=== PATIENT | male | born 1965 | race Caucasian/White ===

== ENCOUNTER 2017-05-29 05:47 | Inpatient (IN) | payer MEDICARE ==
[~2017-05-29] VITALS: Ht 177.8 cm; Wt 90.4 kg
[~2017-05-29 05:47] MED LIST: ASPIRIN325 MG PO; CLARITIN 10 MG10 MG PO; COREG6.25 MG PO; GEMFIBROZIL600 MG PO; GLIPIZIDE10 MG PO; GLUCOPHAGE1000 MG PO; HYDROCODON-ACE1 EAC7 PO; IMDUR30 MG PO; INDERAL LA80 MG PO; NEURONTIN600 MG PO; NORVASC5 MG PO; PLAVIX75 MG PO; PRAVACHOL40 MG PO; ZESTRIL40 MG PO
[2017-05-29 06:16] LABS: BASOPHILS 0.3 % (0-2); EOSINOPHILS 0.6 % (0-7); HEMATOCRIT 35.4 % (42.0-54.0); HEMOGLOBIN 12.5 g/dL (13.5-17.5); IMMATURE GRANULOCYTES 0.3 % (0-5); LYMPHOCYTES 16.3 % (15-50); MCH 30.5 pg (26.0-34.0); MCHC 35.3 g/dL (31.0-37.0); MCV 86.3 fL (80.0-100.0); MEAN PLATELET VOLUME 10.3 fL (7.4-10.4); MONOCYTES 10.5 % (2-11); PLATELET COUNT 318 10x3/uL (130-400); WBC 11.4 10x3/uL (4.8-10.8)
[2017-05-29 06:50] LABS: ALBUMIN 3.6 g/dL (3.4-5.0); ANION GAP 18.9 mmol/L (8-16); BILIRUBIN - TOTAL 1.23 mg/dL (0.2-1.3); CALCIUM 9.2 mg/dL (8.5-10.1); CARBON DIOXIDE 25.4 mmol/L (21.0-32.0); CREATININE - SERUM 1.5 mg/dL (0.6-1.3); MAGNESIUM - SERUM 1.5 mg/dL (1.8-2.4); POTASSIUM - SERUM 3.3 mmol/L (3.5-5.1); PROTEIN - SERUM 8.7 g/dL (6.4-8.2)
--- NOTE | 2017-05-29 08:32 | NUR ---
PT TO UNIT VIA WHEELCHAIR ACCOMAPNIED BY ER STAFF AND FAMILY MEMBER. LOPEZ RUSSO OBTAINED ADMISSION VITALS. THIS NURSE WILL ADMIT PT PER PROTOCOL.
[2017-05-29] MEDS ORDERED: FOLIC ACID1 MG PO (10:12)
[2017-05-29] MEDS ORDERED: TREXALL7.5 MG PO (10:16)
[2017-05-29] MEDS ORDERED: FISH OIL 1,0001 CA1 (10:16)
[2017-05-29] MEDS ORDERED: HYDROCODONE-APA1 TAB PO (10:18)
[2017-05-29 10:20] VITALS: BP 125/97
[2017-05-29] MEDS ORDERED: CLARITIN 10 MG10 MG PO (10:20)
--- NOTE | 2017-05-29 10:36 | NUR ---
QUCKSTART DONE, ADMISSION ASSESMENT DONE, AND ADMISSION HISTORY DONE. IV FLUIDS HUNG. PT REFUSES SCDS. WILL CONTINUE TO MONITOR AND CONTINUE WITH PLAN OF CARE.
[2017-05-29 11:37] VITALS: BP 123/71
[2017-05-29 15:48] VITALS: BP 106/51
--- NOTE | 2017-05-29 16:35 | NUR ---
PT IS CURRENTLY LAYING IN BED ON BACK. PT TX WITH INSULIN PER SLIDING SCALE. PT GIVEN NORCO REQUESTED FOR 01/17 BACK PAIN. PT DENIES ANY FURTHER NEED AT THIS TIME. WILL CONTINUE TO MONITOR.
--- NOTE | 2017-05-29 17:45 | NUR ---
PT IS LAYING IN BED WITH EYES OPEN RESTING. PT DENIES ANY NEED AT THIS TIME. WILL CONTINUE TO MONITOR.
[2017-05-29 20:00] VITALS: BP 111/67
--- NOTE | 2017-05-29 21:27 | NUR ---
PT RESTING IN BED. ALERT/ORIENTED. BEDTIME MEDS GIVEN. FSBS 296, 16 UNITS OF SLIDING SCALE ADMINISTERED. REQUESTED HS SNACK DELIVERED. IVF INFUSING AT 125ML/HR INFUSING TO RIGHT A/C. CPOC.
[2017-05-29 23:45] VITALS: BP 117/71
--- NOTE | 2017-05-30 00:57 | NUR ---
PT CURRENTLY AWAKE AND VISITING WITH HIS DAUGHTER IN HIS ROOM. IVF INFUSING. NO DISTRESS. CPOC.
--- NOTE | 2017-05-30 03:14 | NUR ---
PT NOW SOUNDLY SLEEPING WITH NO DISTRESS. IVF INFUSING. DAUGHTER AT BEDSIDE.
[2017-05-30 03:41] VITALS: BP 123/76
[2017-05-30 05:06] LABS: BASOPHILS 0 % (0-2); EOSINOPHILS 0 % (0-7); HEMATOCRIT 31.6 % (42.0-54.0); IMMATURE GRANULOCYTES 0.3 % (0-5); LYMPHOCYTES 8.3 % (15-50); MCH 30.2 pg (26.0-34.0); MCHC 34.8 g/dL (31.0-37.0); MCV 86.8 fL (80.0-100.0); MEAN PLATELET VOLUME 10.7 fL (7.4-10.4); MONOCYTES 5.4 % (2-11); RBC 3.64 10x6/uL (4.20-6.10)
[2017-05-30 05:09] LABS: PLATELET COUNT 242 10x3/uL (130-400); WBC 6.7 10x3/uL (4.8-10.8)
[2017-05-30 05:23] LABS: CALC OSMOLALITY 281 mosm/kg (275-300); CALCIUM 8.9 mg/dL (8.5-10.1); CARBON DIOXIDE 24.6 mmol/L (21.0-32.0); CHLORIDE - SERUM 98 mmol/L (98-107); CREATININE - SERUM 1.1 mg/dL (0.6-1.3); GLUCOSE 303 mg/dL (74-106); MAGNESIUM - SERUM 1.8 mg/dL (1.8-2.4); PHOSPHOROUS 2.5 mg/dL (2.5-4.9); POTASSIUM - SERUM 4.8 mmol/L (3.5-5.1); SODIUM 134 mmol/L (136-145); UREA NITROGEN 20 mg/dL (7-18); eGFR NON AFRICAN AMERICAN 75 mL/min (90-120)
--- NOTE | 2017-05-30 07:35 | NUR ---
AM ROUNDING- RECEIVED REPORT FROM SHOULDER PAD MOLDER NURSE LAYTON. PT IS CURRENTLY LAYING IN BED ON BACK WITH EYES CLOSED RESTING. PT WOKEN UP TO TX WITH INSULIN PER SLIDING SCALE. DAUGHTER IS AT BEDSIDE. PT IS IN DROPLET ISOLATION FOR FLU. ON 02 AT 2L VIA NC. NO MONITOR. IV SEEN TO RIGHT AC WITH NS WITH 20K+ RUNNING AT 125CC. NO NEED AT THIS TIME. WILL CONTINUE TO MONITOR AND CONTINUE WITH PLAN OF CARE.
[2017-05-30 08:09] VITALS: BP 113/73
[2017-05-30 11:46] VITALS: BP 122/62
--- NOTE | 2017-05-30 12:56 | NUR ---
PT GIVEN NORCO PRN NEEDED FOR PAIN. PT IS C/O 6/10 PAIN FROM BACK AREA. PT DOES STATE THAT HIS CHEST HURTS WHEN HE BREATHS/COUGHS. NO FURTHER NEED AT THIS TIME. WILL CONTINUE TO MONITOR.
[2017-05-30 13:15] VITALS: Ht 177.8 cm; Wt 90.4 kg
[2017-05-30 16:51] VITALS: BP 104/53; BP 144/69
--- NOTE | 2017-05-30 18:15 | NUR ---
PT IS CURRENTLY LAYING IN BED WITH EYES OPEN RESTING. PT DENIES ANY NEED AT THIS TIME. WILL CONTINUE TO MONITOR.
[2017-05-30 20:30] VITALS: BP 114/66
[2017-05-30 23:50] VITALS: BP 131/76
--- NOTE | 2017-05-31 00:15 | NUR ---
ROUNDING ON PT'S MADE. NO NEEDS VOICED. DENIES ANY CURRENT C/O PAIN. POLYSTYRENE MOLDING MACHINE TENDER IN ROOM TO DO VS. CALL LIGHT WITHIN REACH. NURSE STATES NO CHANGES NOTED SINCE INITIAL ASSESSMENTS. WILL CONT TO MONITOR.
[2017-05-31 05:10] VITALS: BP 121/77
[2017-05-31 05:23] LABS: BASOPHILS 0.3 % (0-2); EOSINOPHILS 0.5 % (0-7); HEMATOCRIT 29.2 % (42.0-54.0); HEMOGLOBIN 9.9 g/dL (13.5-17.5); IMMATURE GRANULOCYTES 0.4 % (0-5); LYMPHOCYTES 22.3 % (15-50); MCH 29.6 pg (26.0-34.0); MCHC 33.9 g/dL (31.0-37.0); MCV 87.4 fL (80.0-100.0); MEAN PLATELET VOLUME 10.7 fL (7.4-10.4); MONOCYTES 10.4 % (2-11); NEUTROPHILS 66.1 % (40-80); PLATELET COUNT 278 10x3/uL (130-400); RBC 3.34 10x6/uL (4.20-6.10); WBC 7.5 10x3/uL (4.8-10.8)
[2017-05-31 05:50] LABS: ALBUMIN 2.7 g/dL (3.4-5.0); ALKALINE PHOSPHATASE 61 U/L (46-116); ALT (SGPT) 43 U/L (10-68); CALC OSMOLALITY 278 mosm/kg (275-300); CALCIUM 8.6 mg/dL (8.5-10.1); CARBON DIOXIDE 23.5 mmol/L (21.0-32.0); CHLORIDE - SERUM 103 mmol/L (98-107); GLUCOSE 138 mg/dL (74-106); POTASSIUM - SERUM 3.9 mmol/L (3.5-5.1); PROTEIN - SERUM 6.7 g/dL (6.4-8.2); SODIUM 137 mmol/L (136-145); UREA NITROGEN 20 mg/dL (7-18); eGFR NON AFRICAN AMERICAN 84 mL/min (90-120)
--- NOTE | 2017-05-31 07:38 | NUR ---
AM ROUNDS - PT IS IN BED AND AWAKE AT THIS TIME. O2 AT 2L VIA NC. IV TO RIGHT AC, SL. DROP ISO. A&O. UP AD SOUMYA. BED AT LOWEST POSITION. CALL CASTILLO IN USE/REACH. SIDE RAILS UP X2. WILL CONTINUE TO MONITOR
[2017-05-31 08:11] VITALS: BP 126/85
[2017-05-31 11:57] VITALS: BP 137/74
[2017-05-31 14:04] LABS: HEMOGLOBIN 10.6 g/dL (13.5-17.5)
[2017-05-31 16:13] VITALS: BP 153/90
--- NOTE | 2017-05-31 17:22 | NUR ---
PT IN BED WITH NO NEEDS AT THIS TIME. WILL CONTINUE TO MONITOR
--- NOTE | 2017-05-31 20:15 | NUR ---
PT IN BED RESTING AROUSES TO VOICE. DENIES ANY NEEDS AT THIS TIME.
[2017-05-31 20:55] VITALS: BP 107/57
[2017-06-01 00:45] VITALS: BP 152/83
--- NOTE | 2017-06-01 04:12 | NUR ---
RESTING IN BED WITH EYES CLOSED. N O S/S OF DISTRESS OBSERVED. O2@2 LITERS PER N/C. RESPIRATIONS EVEN AND UNLABORED. IV TO RIGHT AC AND PATENT. DRESSING CLEAN, DRY AND INTACT. REMAINS IN DROPLET ISOLATION D/T INFLUENZA A AND B. CALL LIGHT AND OVERBED TABLE IN REACH.
[2017-06-01 04:47] LABS: BASOPHILS 0.2 % (0-2); EOSINOPHILS 0.7 % (0-7); HEMATOCRIT 30.1 % (42.0-54.0); HEMOGLOBIN 10.4 g/dL (13.5-17.5); IMMATURE GRANULOCYTES 1.6 % (0-5); LYMPHOCYTES 27.6 % (15-50); MCH 29.9 pg (26.0-34.0); MCHC 34.6 g/dL (31.0-37.0); MCV 86.5 fL (80.0-100.0); MEAN PLATELET VOLUME 10.5 fL (7.4-10.4); MONOCYTES 12.1 % (2-11); NEUTROPHILS 57.8 % (40-80); PLATELET COUNT 330 10x3/uL (130-400); RBC 3.48 10x6/uL (4.20-6.10); RDW 15.5 % (11.5-14.5); WBC 8.2 10x3/uL (4.8-10.8)
[2017-06-01 05:18] LABS: ALBUMIN 2.8 g/dL (3.4-5.0); ALKALINE PHOSPHATASE 85 U/L (46-116); ALT (SGPT) 51 U/L (10-68); CALC OSMOLALITY 280 mosm/kg (275-300); CALCIUM 9.1 mg/dL (8.5-10.1); CHLORIDE - SERUM 102 mmol/L (98-107); GLUCOSE 119 mg/dL (74-106); POTASSIUM - SERUM 3.8 mmol/L (3.5-5.1); PROTEIN - SERUM 6.9 g/dL (6.4-8.2); SODIUM 139 mmol/L (136-145); UREA NITROGEN 18 mg/dL (7-18); eGFR NON AFRICAN AMERICAN 84 mL/min (90-120)
[2017-06-01 06:12] VITALS: BP 187/98
[2017-06-01] MEDS ORDERED: TAMIFLU75 MG PO (07:35)
[2017-06-01 07:47] VITALS: BP 158/86
--- NOTE | 2017-06-01 09:03 | NUR ---
AM MEDS GIVEN AT THIS TIME. PT UP TO SIDE OF BED, DENIES ANY NEEDS AT THIS TIME. CALL LIGHT IN REACH, NAD NOTED, WILL CONTINUE PLAN OF CARE.
--- NOTE | 2017-06-01 10:29 | NUR ---
Patient Name: DEBBIE GAYTAN Admission Status: ER Accout number: [id number] Admission Date: 05-29-2017 : 1965 Admission Diagnosis:FLU DUE TO OTH IDENT INFLUENZA VIRUS W OTH RESP MANIFES Attending: Power Delgadillo Current LOS: 3 Anticipated DC Date: 06-01-2017 Planned Disposition: Home Primary Insurance: MEDICARE A & B Discharge Planning Comments: * Is the patient Alert and Oriented? Yes 0 * How many steps to enter\exit or inside your home? RAMP 0 * PCP DR. AGUAYO 0 * Pharmacy [address] 0 * Preadmission Environment Home with Family 0 * ADLs Independent 0 * Equipment Cane Glucometer Other Walker Wheelchair 0 * Other Equipment BLOOD PRESSURE MONITOR [employer] - MEDICAL EQUIPMENT PROVIDER 0 * List name and contact numbers for known caregivers / representatives who currently or will assist patient after discharge: SAMIRA GAYTAN, DTR, JASON RENNER, DTR, 0 * Community resources currently utilized None 0 * Please name any agencies selected above. NONE 0 * Additional services required to return to the preadmission environment? No 0 * Can the patient safely return to the preadmission environment? Yes 0 * Has this patient been hospitalized within the prior 30 days at any hospital? No 0 CM MET WITH PT IN ROOM TO DISCUSS DISCHARGE PLANNING AND NEEDS. PT REPORTS LIVING AT HOME INDEPENDENTLY WITH ADULT DAUGHTER. PT HAS [employer] CAN[employer], STANDARD WALKER, GLUCOMETER, WHEELCHAIR AND BLOOD PRESSURE MONITOR FROM [employer]. PT HAS NO OUTSIDE SERVICES ASSISTING IN THE HOME. CM DISCUSSED AVAILABILITY OF HOME HEALTH, REHAB SERVICES AND MEDICAL EQUIPMENT. PT DENIES DISCHARGE NEEDS, REPORTS HIS FAMILY WILL PICK HIM UP FOR DISCHARGE HOME. IMPORTANT MESSAGE FROM MEDICARE PROVIDED AND EXPLAINED. Lockmaker: Amor Soliz
--- NOTE | 2017-06-01 11:45 | NUR ---
BLOOD SUGAR OF 296, 16UNITS OF HUMALOG GIVEN PER S/S. PT IN BED, FIXING TO EAT LUNCH, DENIES ANY NEEDS AT THIS TIME. CALL LIGHT IN REACH, NAD NOTED, WILL CONTINUE TO MONITOR.
[2017-06-01 11:48] VITALS: BP 145/88
--- NOTE | 2017-06-01 13:16 | NUR ---
PT LEFT UNIT VIA WHEELCHAIR, ACCOMPANIED BY DAUGHTER, NAD NOTED.
== END 2017-06-01 13:30 | disposition home or self-care (01) | DRG 194 ==
LOC: D.ER 05:47 → D.M2 07:58
PROVIDERS: Emergency Medicine; Family Medicine; ADMIT Family Medicine
DX: J10.1 Influenza due to other identified influenza virus with other respiratory manifestations (principal); J45.901 Unspecified asthma with (acute) exacerbation; I11.0 Hypertensive heart disease with heart failure; I50.9 Heart failure, unspecified; E11.40 Type 2 diabetes mellitus with diabetic neuropathy, unspecified; I25.10 Atherosclerotic heart disease of native coronary artery without angina pectoris; D64.9 Anemia, unspecified

== ENCOUNTER 2017-08-30 11:27 | Outpatient (CLI) | payer MEDICARE ==
[~2017-08-30] VITALS: Ht 177.8 cm; Wt 90.0 kg
--- NOTE | ~2017-08-30 | HEMODYNAMI ---
PATIENT:DEBBIE GAYTAN MEDICAL RECORD: [id number] : 65 [id number] ADMISSION DATE: 08/30/17 Generatedon:08/31/201712:41 Patient name: DEBBIE GAYTAN Patient #: [id number] SSN: : 1965 Date of study: 08/31/2017 Page: Of Hemodynamic Procedure Report Patient Data Patient Demographics Procedure consent was obtained First Name: DEBBIE Gender: Male Last Name: LUKAS : 1965 Patient #: [id number] Age: 51 year(s) Race: Unknown Additional ID: [id number] Contact details Address: [place] [address] State: [place] City: [place] Zip code: [address] Past Medical History Allergies: No known allergies Admission Admission Data Admission Date: 08/30/2017 Admission Time: 11:27 Room #: 2127 Lab Results Lab Result Date: 08/31/2017 Lab Result Time: 7:19 Biochemistry Name Units Result Min Max BUN mg/dl 25 --(----)-* 7 18 Creatinine mg/dl 1 --(--*-)-- 0.6 1.3 CBC Name Units Result Min Max Hematocrit % 35.7 *-(----)-- 42 54 Hemoglobin g/dl 12.1 *-(----)-- 13.5 17.5 Procedure Procedure Types Cath Procedure Diagnostic Procedure [facility] w/Coronaries PCI Procedure Coronary Stent Coronary Stent Initial Miscellaneous Procedures Moderate Sedation up to 15 minutes Procedure Description Procedure Date Procedure Date: 08/31/2017 Procedure Start Time: 12:11 Procedure End Time: 12:36 Procedure Staff Name Function Kassy Valenzuela RN Nurse Jaime Montes MD Performing Physician Matt Juan RT Scrub Sharmila Franz RN Nurse Silvia Lee RT Monitor Procedure Data Cath Procedure Fluoroscopy Diagnostic fluoroscopy Total fluoroscopy Time: 7.2 time: 7.2 min min Diagnostic fluoroscopy Total fluoroscopy dose: dose: 1232 mGy 1232 mGy Contrast Material Contrast Material Type Amount (ml) Isovue 300 171 Entry Location Entry Primary Successful Side Size Upsize Upsize Entry Closure Succes sful Closure Location (Fr) 1 (Fr) 2 (Fr) Remarks Device Remarks Femoral Right 5 Fr 6 Fr Exoseal artery Short Estimated blood loss: 10 ml Diagnostic catheters Device Type Used For End Catheter Placement MULTIPACK Pigtail 5 Fr LV Angiography catheter MULTIPACK JL 4.0 5Fr Left Coronary catheter Angiography MULTIPACK 3DRC 5Fr Right Coronary catheter Angiography DIAGNOSTIC JL 3.5 5Fr Left Coronary catheter ([id number]) Angiography DIAGNOSTIC AR 2 MOD 5 Fr Right Coronary catheter ([id number]) Angiography Procedure Complications No complications Procedure Medications Medication Administration Route Dosage 0.9% NaCl I.V. 100 ml/hr Oxygen NC 2 l/min Lidocaine 2% added to field 20 Heparin Flush Bag added to field 2 bags (1000units/500ml NS) Fentanyl I.V. 100 mcg Versed I.V. 2 mg Fentanyl I.V. 50 mcg Heparin Bolus I.V. 5000 units Integrilin (Bolus I.V. 7.9 ml 2mg/ml) Fentanyl I.V. 50 mcg Versed I.V. 1 mg Versed I.V. 1 mg Plavix P.O. 600 mg Hemodynamics Rest HGB: 12.1 (g/dl) Heart Rate: 76 (bpm) Snapshots Pre Cath Intra NCS Post Cath Vital Signs Time Heart Resp SPO2 etCO2 NIBP (mmHg) Rhythm Pain Sedation Rate (ipm) (%) (mmHg) Status Level (bpm) 11:56:07 75 16 98 26.4 136/67(119) NSR 0 (11) 10(A) , No pain 12:00:14 77 19 98 29.4 126/89(104) NSR 0 (11) 10(A) , No pain 12:04:26 81 21 99 33.2 124/77(101) NSR 0 (11) 10(A) , No pain 12:08:34 82 15 97 36.9 117/86(95) NSR 0 (11) 10(A) , No pain 12:12:40 87 16 97 44.5 130/87(118) NSR 0 (11) 9(A) , No pain 12:16:48 86 18 96 46 133/92(123) NSR 0 (11) 9(A) , No pain 12:21:00 87 19 94 21.8 124/79(115) NSR 0 (11) 9(A) , No pain 12:25:08 89 16 95 0 117/89(99) NSR 0 (11) 9(A) , No pain 12:29:14 88 16 99 0 122/86(109) NSR 0 (11) 9(A) , No pain 12:33:21 87 16 97 36.2 130/86(117) NSR 0 (11) 10(A) , No pain Medications Time Medication Route Dose Verified Delivered Reason Not es Effectiveness by by 11:56:24 0.9% NaCl I.V. 100ml/hr Jaime Doll used for Jyoti Franz RN procedure 11:56:33 Oxygen NC 2 l/min Jaime Doll Per physician Jyoti Franz RN 11:56:41 Lidocaine 2% added 20ml Jaimereymundo Sandoval used for to vial Jyoti Montes MD procedure field 11:56:47 Heparin Flush added 2 bags Jaime Sandoval used for Bag to Jyoti Montes MD procedure (1000units/500ml field NS) 12:08:28 Fentanyl I.V. 100 mcg Jaime Tysonfany for sedation Jyoti Franz RN 12:08:37 Versed I.V. 2 mg Jaime Tysonfany for sedation Jyoti Franz RN 12:11:25 Fentanyl I.V. 50 mcg Jaime Tysonfany for sedation Jyoti Franz RN 12:19:07 Heparin Bolus I.V. 5000 Jaime Sharmila for maynor ified units Jyoti Franz RN anticoagulation by 12:19:21 Integrilin I.V. 7.9ml Jaime Tysonfany for was te (Bolus 2mg/ml) Jyoti Franz RN antiplatelet 2.1ml therapy 12:20:13 Fentanyl I.V. 50 mcg Jaime Tysonfany for sedation Jyoti Franz RN 12:20:19 Versed I.V. 1 mg Jaime Tysonfany for sedation Jyoti Franz RN 12:27:21 Versed I.V. 1 mg Jaime Tysonfany for sedation Jyoti Franz RN 12:32:56 Plavix P.O. 600 mg Jaime Tysonfandoug Franz RN antiplatelet therapy Procedure Log Time Note 11:43:20 Matt Juan RT(R) sent for patient. Start room use. 11:43:22 Informed consent obtained and on chart 11:43:28 Diagnostic Cath status Elective 11:43:52 Time tracking: Regular hours 11:43:56 Plan of Care:Hemodynamics will remain stable., Cardiac rhythm will remain stable., Comfort level will be maintained., Respiratory function will remain adequate., Patient/ family verbilizes understanding of procedure., Procedure tolerated without complication., Recovers from procedure without complications.. 11:44:23 H&P Date Dictated: 08/30/2017 Within 30 days and on chart.. 11:47:57 Lab Result : Hemoglobin 12.1 g/dl 11:47:57 Lab Result : Hematocrit 35.7 % 11:47:57 Lab Result : BUN 25 mg/dl 11:47:57 Lab Result : Creatinine 1 mg/dl 11:48:24 Patient received from Med II to CCL 2 Alert and oriented. Tansferred to table in Supine position. 11:48:25 Correct patient and procedure confirmed by team. 11:48:25 Warm blankets applied, and adriel hugger turned on for patient comfort. 11:48:26 ECG and BP/O2 sat monitors applied to patient. 11:51:20 Pre-op teaching completed and patient verbalized understanding. 11:51:20 Pre-procedure instructions explained to patient. 11:51:21 Family in waiting room. 11:51:22 Patient NPO since Midnight. 11:51:27 Patient allergic to No known allergies 11:51:29 Is the patient allergic to Iodine/contrast media? No. 11:51:31 Is patient on blood thinner?Yes 11:51:32 Patient diabetic? Yes. 11:51:33 If diabetic: On Metformin? Yes 11:51:36 If on Metformin: Last Dose? 08/29/2017 11:51:51 Previous problem with sedation/anesthesia? No ? 11:51:52 Snore? Yes 11:51:54 Deviated septum? No 11:51:54 Sleep apnea? No 11:51:55 Opens mouth fully? Yes 11:51:56 Sticks out tongue? Yes 11:52:00 Airway obstruction? Yes COPD 11:52:03 Dentures? No ? 11:52:07 Pre procedure: left dorsailis pedis pulse 2+ Normal; easily identifiable; not easily obliterated 11:52:12 Patient pain scale 0/10 ?. 11:52:19 IV patent on arrival in left forearm with 0.9% NaCl at [facility]. 11:52:24 Lab results completed and on chart. 11:52:30 Left groin area was prepped with chlora-prep and draped in sterile fashion 11:52:31 Sharps counted by scrub and verified by R.N. 11:52:31 Alarms reviewed by R. N. 11:52:34 Use device set Femoral Dx 11:52:35 ACIST Syringe (97867) opened to sterile field. 11:52:36 Medline Cath Pack ([id number]) opened to sterile field. 11:52:36 Bag Decanter (2002S) opened to sterile field. 11:52:37 ACIST Hand Control (76596) opened to sterile field. 11:52:39 ACIST Manifold (56294) opened to sterile field. 11:52:40 Tegaderm 4 x 4 (1626W) opened to sterile field. 11:52:48 DIAGNOSTIC WIRE .035 260cm J wire (630040) opened to sterile field. 11:52:49 SHEATH 5FR [place] (YTX989) opened to sterile field. 11:52:52 DIAGNOSTIC Multipack 5Fr catheter set (QN9395) opened to sterile field. 11:54:42 Vital chart was started 11:55:56 Baseline sample Acquired. 11:55:59 Rhythm: sinus rhythm 11:56:01 Full Disclosure recording started 11:56:24 0.9% NaCl 100ml/hr I.V. was administered by Sharmila Franz RN; used for procedure; 11:56:33 Oxygen 2 l/min NC was administered by Sharmila Franz RN; Per physician; 11:56:41 Lidocaine 2% 20ml vial added to field was administered by Jaime Montes MD; used for procedure; 11:56:47 Heparin Flush Bag (1000units/500ml NS) 2 bags added to field was administered by Jaime Montes MD; used for procedure; 12:07:08 Final Timeout: patient, procedure, and site verified with staff and physician. All members of the team are in agreement. 12:07:50 --------ALL STOP TIME OUT------ 12:08:28 Fentanyl 100 mcg I.V. was administered by Sharmila Franz RN; for sedation; 12:08:37 Versed 2 mg I.V. was administered by Sharmila Franz RN; for sedation; 12:10:27 Zero performed for pressure channel P1 12:11:13 Left groin site verified by team. 12:11:17 Physical assessment completed. ASA score P 2 - A patient with mild systemic disease as per Jaime Montes MD. 12:11:21 Sedation plan: IV Moderate Sedation Medication:Versed, Fentanyl 12::25 Fentanyl 50 mcg I.V. was administered by Sharmila Franz RN; for sedation; 12:11:26 Procedure started. 12:11:30 Local anesthetic to left femerol artery with Lidocaine 2% by Jaime Montes MD.INITIAL ACCESS ONLY 12:11:39 A 5 Fr sheath was inserted into the Right Femoral artery 12:11:48 A MULTIPACK Pigtail 5 Fr catheter was advanced over the wire and used for LV Angiography. 12:11:54 LV hemodynamics recorded. 12:11:55 LV gram done using WILHELM 12:11:58 Injector settings: Ml/sec: 5, Volume: 15, 12:12:03 EF : 50 % 12:12:45 Abdominal angiogram w/ runoff was performed. 12:12:49 Catheter removed. 12:12:53 A MULTIPACK JL 4.0 5Fr catheter was advanced over the wire and used for Left Coronary Angiography. 12:14:11 Catheter removed. 12:14:18 A MULTIPACK 3DRC 5Fr catheter was advanced over the wire and used for Right Coronary Angiography. 12:16:37 Catheter removed. 12:16:40 A DIAGNOSTIC JL 3.5 5Fr catheter ([id number]) was advanced over the wire and used for Left Coronary Angiography. 12:17:25 Catheter removed. 12:17:45 A DIAGNOSTIC AR 2 MOD 5 Fr catheter ([id number]) was advanced over the wire and used for Right Coronary Angiography. 12:18:16 SHEATH 6FR [place] (ATX758) opened to sterile field. 12:18:17 INFLATOR Merit BasixCompak (AS9220) opened to sterile field. 12:18:22 RCA angiography performed. 12:18:25 Injector settings: Ml/sec: 3, Volume: 6, 12:18:26 Catheter removed. 12:18:27 Proceeding to intervention. 12:18:33 Sheath upsized to a 6 Fr Short. 12:18:59 CHOICE PT Extra Support 182cm wire ([id number]) opened to sterile field. 12:19:07 Heparin Bolus 5000 units I.V. was administered by Sharmila Franz RN; for anticoagulation; verified by 12:19: Integrilin (Bolus 2mg/ml) 7.9ml I.V. was administered by Sharmila Franz RN; for antiplatelet therapy; waste 2.1ml 12:19:35 GUIDE 6FR HS I catheter (LA6HSI) opened to sterile field. 12::49 6 Fr hs 1 guide catheter was inserted over the wire 12:20:13 Fentanyl 50 mcg I.V. was administered by Sharmila Franz RN; for sedation; 12:: Versed 1 mg I.V. was administered by Sharmila Franz RN; for sedation; 12::55 GUIDE 6FR 3DRIGHT catheter ([id number]) opened to sterile field. 12:23:13 6 Fr 3d right guide catheter was inserted over the wire 12:23:30 Guide Catheter removed. unable to cannulate vessel. 12:23:44 GUIDE 6FR EBU 3.0 catheter ([id number]) opened to sterile field. 12:24:03 6 Fr ebu3 guide catheter was inserted over the wire 12:26:14 Guide Catheter removed. unable to cannulate vessel. 12:26:22 GUIDE 6FR EBU 3.5 catheter ([id number]) opened to sterile field. 12:27:21 Versed 1 mg I.V. was administered by Sharmila Franz RN; for sedation; 12:29:20 Inflation Number: 1 A INTEGRITY RX 3.0 x 15 stent ([id number]) was prepped and advanced across the Prox LAD. The stent was deployed at 17 LUCRECIA for 0:10 (min:sec). 12::49 Wire removed. 12:29:50 Guide catheter removed. 12:31:40 Sheath removed intact; hemostasis achieved with Exoseal to the Right Femoral artery. 12::52 EXOSEAL 6Fr (EX600) opened to sterile field. 12::55 Procedure ended.(Physican Out) 12:32:05 Fluoroscopy time 07.20 minutes. 12:32:10 Fluoroscopy dose: 1232 mGy 12:32:10 Flurop Dose total: 1232 12:32:17 Contrast amount:Isovue 300 171ml. 12:32:20 Sharps counted by scrub and verified by R.N. 12:32:23 Insertion/operative site no bleeding no hematoma. 12:32:29 Post-op/insertion site Right Femoral artery dressed using a 4 x 4 and Tegaderm. 12:32:41 Post left femerol artery:stable 12:32:54 Post Procedure Pulses reassessed and unchanged 12:32:56 Plavix 600 mg P.O. was administered by Sharmila Franz RN; for antiplatelet therapy; 12:32:59 Post-procedure physical assessment completed. ASA score P 2 - A patient with mild systemic disease as per Jaime Montes MD. 12:33:04 Post procedure rhythm: unchanged. 12:33:08 Estimated blood loss: 10 ml 12:33:10 Post procedure instruction explained to patient.Patient verbalizes understanding. 12:34:33 Procedure type changed to Cath procedure, Diagnostic procedure, LHC, LHC w/Coronaries, PCI procedure, Coronary Stent, Coronary Stent Initial, Miscellaneous Procedures, Moderate Sedation up to 15 minutes 12:34:36 Procedure and supply charges have been captured, reviewed, submitted and are correct. 12:35:34 Procedure Complication : No complications 12:35:37 See physician's report for complete and final results. 12:35:37 Vital chart was stopped 12:35:40 Report given to Med II. 12:35:51 Report given to Med II. 12:36:01 Patient transfered to Med II with Bed. 12:36:04 Full Disclosure recording stopped 12:36:04 Procedure ended. 12:36:15 ACC-PCI Only Patient was given prescriptions, or instructed by Jaime Montes MD to start/continue the following medications upon discharge: Plavix 12:36:17 End room use (Document Last) Intervention Summary Intervention Notes Time ActionType Lesion and Equipment Action# Pressure Duration Attributes Used 12:29:20 Place stent Prox LAD INTEGRITY RX 1 17 00:10 3.0 x 15 stent ([id number]) Device Usage Item Name Manufacture Quantity Catalog Number Hospital Part Current Mini mal Lot# / Charge Number Stock Stock Serial# Code ACIST Acist 1 76260 734597 295737 202550 20 Syringe Medical (46206) Systems Inc Bag Decanter Microtek 1 2001S 236794 65706 496293 5 (2001S) Medical Inc. Medline Cath Cardinal 1 [id number] 252038 29627 552114 5 Pack InteliWISE [place] ([id number]) ACIST Hand Acist 1 24557 317511 575234 345345 5 Control Medical (40016) Systems Inc ACIST Acist 1 60746 650780 196727 327013 5 Manifold Medical (40225) Systems Inc Tegaderm 4 x 3M 1 1626W 642724 089541 706451 5 4 (1626W) DIAGNOSTIC [place] 1 425921 969102 377242 399209 30 WIRE .035 260cm J wire (333016) SHEATH 5FR Terumo 1 LWA462 094645 168885 951220 40 [place] (CCF462) DIAGNOSTIC Cardinal 1 JO1024 829678 90470 456107 30 Multipack Health 5Fr catheter set (OC4086) MULTIPACK Cardinal 1 018160 5 Pigtail 5 Fr Health catheter MULTIPACK JL Cardinal 1 594698 5 4.0 5Fr Health catheter MULTIPACK Cardinal 1 225043 5 3DRC 5Fr Health catheter DIAGNOSTIC Cardinal 1 155309O 502647 165598 028813 5 JL 3.5 5Fr Health catheter (461994W) DIAGNOSTIC Cardinal 1 [id number] 922964 066569 277508 20 AR 2 MOD 5 Health Fr catheter (541713X) SHEATH 6FR Terumo 1 JBD373 508226 801314 554077 40 [place] (IGL461) INFLATOR Merit 1 KP4598 340731 598461 102645 15 MBA Polymers Medical BasixCompak (SF8167) CHOICE PT Rhodes 1 [id number] 483296 595252 416511 5 Extra Scientific Support 182cm wire (3980028Y3) GUIDE 6FR HS Medtronic 1 LA6HSI 468428 85097 877482 1 I catheter (LA6HSI) GUIDE 6FR Medtronic 1 [id number] 702308 307559 195570 1 3DRIGHT catheter ([id number]) GUIDE 6FR Medtronic 1 [id number] 889461 44072 763302 0 EBU 3.0 catheter ([id number]) GUIDE 6FR Medtronic 1 WT0QST01 591712 55917 272158 3 EBU 3.5 catheter ([id number]) INTEGRITY RX Medtronic 1 [id number] 253852 568260 625590 5 [id number] 3.0 x 15 stent ([id number]) EXOSEAL 6Fr Cardinal 1 EX600 056961 692744 954575 10 (EX600) Health Signature Audit [place] Stage Time Signature Unsigned Intra-Procedure 08/31/2017 Matt Juan 12:40:47 PM RT(R); Silvia Lee RT(R) Signatures Monitor : Silvia Lee Signature : RT Date : Time : [id number] [place] [address]
--- NOTE | ~2017-08-30 | CN ---
PATIENT NAME:DEBBIE GAYTAN MEDICAL RECORD: [id number] : 65 LOCATION:D. D.2127 ADMIT DATE: 08/30/17 ACCOUNT: [id number] CONSULTING PHYSICIAN: HE PARKS MD REFERRING PHYSICIAN: SOFI AGUAYO DO DATE OF CONSULTATION: 08/30/2017 CARDIOLOGY CONSULTATION DATE OF SERVICE: 08/30/2017 DIAGNOSES: 1. Angina. 2. Coronary artery disease. 3. Previous percutaneous transluminal coronary angioplasty stent. 4. Shortness of breath, dyspnea on exertion. 5. Hypertension. 6. Hyperlipidemia. HISTORY OF PRESENT ILLNESS: This is a gentleman with a past history of coronary artery disease, previous PTCA stent in 2013, who began having 2 weeks of chest pain and chest discomfort compatible with his angina, just like that of his previous angina. PHYSICAL EXAMINATION: GENERAL APPEARANCE: Well-nourished, well-developed, appears stated age. Level of distress, comfortable. PSYCHIATRIC: Mental status, alert, normal affect. Orientation, oriented to time, place and person. EYES: Lids and conjunctiva, noninjected. No discharge, no pallor. ENT: Lips, teeth, gums, normal dentition. Oropharynx, no cyanosis, no pallor. NECK: Carotid arteries, bilateral normal upstroke, no bruits, no thrills. JUGULAR VEINS: No jugular venous pressure or distention. CERVICAL LYMPH NODES: Nontender, nonenlarged. THYROID: Not enlarged. Nontender. No nodules. LUNGS: Respiratory effort, unlabored. CHEST: Normal curvature. No thoracic deformity. No chest wall tenderness. Percussion, resonant. Auscultation, clear. No wheezes, no rales, no rhonchi. CARDIOVASCULAR: Precordial exam, nondisplaced. No heaves or pericardial thrills. Rate and rhythm, regular. Heart sounds, normal S1, normal S2. No S3, no gallop, no rub. Systolic murmur, not heard. Diastolic murmur, not heard. EXTREMITIES: No cyanosis, no edema. Peripheral pulses, full and equal in all extremities, except as noted. No bruits appreciated. ABDOMEN: Soft, nondistended. Normal aorta. No bruit. Nontender. No masses. Liver, nontender, no hepatomegaly. Spleen, nontender, no splenomegaly. MUSCULOSKELETAL: No joint tenderness. No joint swelling. No erythema. NEUROLOGICAL: Normal gait, normal strength, normal tone. SKIN: Warm and dry. REVIEW OF SYSTEMS: The patient reports easy bruising but reports no swollen glands. The patient reports no fever, no night sweats, no significant weight gain, no significant weight loss. No significant exercise tolerance. The patient reports no dry eyes, no irritation, no vision change. Patient reports no difficulty hearing and no ear pain. Patient reports no frequent nose bleeds or nose and sinus problems. Patient reports on arm pain on exertion. No CONSULT REPORT [id number] DEBBIE GAYTAN shortness of breath while lying down. No history of heart murmur. Patient reports no cough, no wheezing or coughing up blood. Patient reports no abdominal pain, no vomiting. Normal appetite. No diarrhea and not vomiting blood. No nausea and no constipation. Patient reports no incontinence. No difficulty urinating. No hematuria. No increased frequency. Patient reports no muscle aches. No weakness, no arthralgias, no back pain. No swelling of the extremities. Patient reports no abnormal mole, no jaundice, no rashes. Reports no loss of consciousness. No weakness and no numbness. No seizures, dizziness, or headaches. The patient reports no depression, no sleep disturbance, feeling safe in a relationship and no alcohol abuse. Patient reports on fatigue. Reports no runny nose or sinus pressure. No itching, no hives, and no frequent sneezing. OVERALL IMPRESSION: Chest pain compatible with angina in an unstable progressive fashion. We will proceed with coronary angiography in the a.m. Further care depends upon findings of the angiography. TRANSINT:[id number] Voice Confirmation ID: [id number] DOCUMENT ID: [id number] HE PARKS MD at 1148 CC: [id number] DICTATION DATE: 08/30/17 1545 BARBER: 08/30/17 1616 DIS IN 08/31/17 [place] [id number] [place] [id number]
--- NOTE | ~2017-08-30 | DS ---
PATIENT:DEBBIE BRASHER :65 MEDICAL RECORD: [id number] DISCHARGE SUMMARY ADMISSION DATE: 08/30/17 DISCHARGE DATE: 08/31/17 DATE OF DISCHARGE: 08/31/2017. DIAGNOSES: 1. Angina. 2. Coronary artery disease. 3. Percutaneous transluminal coronary angioplasty stent of left anterior descending this admission. 4. Hypertension. 5. Hyperlipidemia. HOSPITAL COURSE: Mr. Brasher presents with anginal symptomatology, found to have significant disease of the LAD, underwent successful PTCA stent of the LAD, was discharged home with the addition of aspirin and Plavix to his medical regimen. He will follow up with [facility] in 1 month. TRANSINT:[id number] Voice Confirmation ID: [id number] DOCUMENT ID: [id number] HE PARKS MD at 1148 CC: [id number] DICTATION DATE: 08/31/17 1239 SOCK IRONER: 08/31/17 1603 DIS IN 08/31/17 [place] [address] [place] [address]
--- NOTE | ~2017-08-30 | OP ---
PATIENT NAME: DEBBIE GAYTAN MEDICAL RECORD: [id number] :65 LOCATION:D.M2 D.2127 ADMISSION DATE:08/30/17 SURGEON: HE PARKS MD DATE OF OPERATION: 08/31/2017 PROCEDURES: 1. PTCA stent to LAD. 2. Left heart catheterization. 3. Selective coronary angiography. 4. Left ventriculogram. INDICATION: Unstable angina. PROCEDURE IN DETAIL: After informed consent was obtained and after detailed explanation of risks, benefits as well as alternative therapies, the patient elected to proceed with angiogram and angioplasty. The left femoral area was prepped and draped in normal sterile fashion. Left femoral artery was cannulated via modified Seldinger technique with placement of 6-Yoruba sheath. All catheters exchanged through this sheath. FINDINGS: Left ventriculogram was performed in standard 30-degree WILHELM view, reveals good cardiac wall motion, ejection fraction 55% to 60%. SELECTIVE CORONARY ANGIOGRAPHY: 1. Left main showed no significant angiographic disease. 2. Left anterior descending has previously placed stents. These are widely patent. However, proximal to this, there is 75% to 80% stenosis. 3. The left circumflex has previously placed stent that is widely patent with no significant restenosis. No disease elsewise at the left circumflex or its branches. 4. The right coronary artery has previously placed stents, these are closed. The distal right coronary artery fills via left to right collaterals. PTCA STENT OF THE LAD: The stent used was a 3.0 x 15 mm Integrity taken to 17 atmospheres. Result was 0% residual stenosis. OVERALL IMPRESSION: Successful percutaneous transluminal coronary angioplasty stent of the left anterior descending going from 80% initial stenosis to 0% residual. TRANSINT:[id number] Voice Confirmation ID: [id number] DOCUMENT ID: [id number] HE PARKS MD at 1148 CC: [id number] DICTATION DATE: 08/31/17 1240 CURING SUPERVISOR: 08/31/17 1246 DIS IN 08/31/17 [place] [id number] [place] [id number]
[~2017-08-30 11:27] MED LIST changes: +FISH OIL 1,0001 CA1; +FOLIC ACID1 MG PO; +HYDROCODONE-APA1 TAB PO; +TAMIFLU75 MG PO; +TREXALL7.5 MG PO
[2017-08-30] MEDS ORDERED: JANUVIA50 MG PO (13:23)
[2017-08-30 13:26] VITALS: BP 97/51; Ht 177.8 cm; Wt 90.0 kg
[2017-08-30] MEDS ORDERED: GEMFIBROZIL600 MG PO (13:28)
[2017-08-30] MEDS ORDERED: GLUCOPHAGE1000 MG PO (13:29)
[2017-08-30] MEDS ORDERED: FISH OIL 1,0001 CA1 (13:32)
[2017-08-30] MEDS ORDERED: BAYER CHEWABLE81 MG PO (13:33)
[2017-08-30] MEDS ORDERED: FOLIC ACID1 MG PO (13:35)
[2017-08-30] MEDS ORDERED: LEUCOVORIN CALCI5 MG PO (13:43)
[2017-08-30] MEDS ORDERED: METHOTREXATE2.5 MG PO (13:46)
[2017-08-30] MEDS ORDERED: HYDROCODONE-APA1 TAB PO (13:47)
[2017-08-30] MEDS ORDERED: CYCLOBENZAPRINE10 MG PO (13:48)
[2017-08-30 14:21] LABS: CKMB 0.8 U/L (0.0-3.6); CREATINE KINASE 53 UL (21-232)
[2017-08-30 14:22] LABS: TROPONIN-I < 0.017 ng/mL (0.000-0.060)
[2017-08-30 16:11] VITALS: BP 93/49
[2017-08-30 19:56] LABS: CREATINE KINASE 49 UL (21-232)
[2017-08-30 19:57] LABS: TROPONIN-I < 0.017 ng/mL (0.000-0.060)
[2017-08-30 20:00] VITALS: BP 107/73
[2017-08-31] VITALS: BP 118/70
[2017-08-31 01:12] LABS: CKMB 0.5 U/L (0.0-3.6); CREATINE KINASE 49 UL (21-232); TROPONIN-I < 0.017 ng/mL (0.000-0.060)
[2017-08-31 04:00] VITALS: BP 118/70
[2017-08-31 07:46] LABS: BASOPHILS 0.4 % (0-2); EOSINOPHILS 6.6 % (0-7); HEMATOCRIT 35.7 % (42.0-54.0); HEMOGLOBIN 12.1 g/dL (13.5-17.5); IMMATURE GRANULOCYTES 0.2 % (0-5); LYMPHOCYTES 26.6 % (15-50); MCH 30.8 pg (26.0-34.0); MCHC 33.9 g/dL (31.0-37.0); MCV 90.8 fL (80.0-100.0); MEAN PLATELET VOLUME 10.5 fL (7.4-10.4); MONOCYTES 7.7 % (2-11); NEUTROPHILS 58.5 % (40-80); RBC 3.93 10x6/uL (4.20-6.10); WBC 5.3 10x3/uL (4.8-10.8)
[2017-08-31 07:47] LABS: PLATELET COUNT 227 10x3/uL (130-400)
[2017-08-31 08:12] LABS: ALKALINE PHOSPHATASE 74 U/L (46-116); ALT (SGPT) 62 U/L (10-68); CALC OSMOLALITY 280 mosm/kg (275-300); CALCIUM 8.8 mg/dL (8.5-10.1); CARBON DIOXIDE 28.3 mmol/L (21.0-32.0); CHLORIDE - SERUM 99 mmol/L (98-107); CKMB 0.4 U/L (0.0-3.6); CREATINE KINASE 45 UL (21-232); POTASSIUM - SERUM 4.2 mmol/L (3.5-5.1); PROTEIN - SERUM 7.5 g/dL (6.4-8.2); SODIUM 135 mmol/L (136-145); TROPONIN-I < 0.017 ng/mL (0.000-0.060); UREA NITROGEN 25 mg/dL (7-18); eGFR NON AFRICAN AMERICAN 84 mL/min (90-120)
[2017-08-31 08:21] LABS: GLUCOSE 217 mg/dL (74-106)
[2017-08-31 08:46] VITALS: BP 113/80
[2017-08-31 13:57] LABS: CKMB 0.8 U/L (0.0-3.6); CREATINE KINASE 47 UL (21-232)
[2017-08-31 13:58] LABS: TROPONIN-I < 0.017 ng/mL (0.000-0.060)
[2017-08-31 20:14] LABS: CKMB 0.9 U/L (0.0-3.6); CREATINE KINASE 43 UL (21-232)
[2017-08-31 20:15] LABS: TROPONIN-I < 0.017 ng/mL (0.000-0.060)
== END 2017-08-31 21:30 | disposition home or self-care (01) ==
LOC: OBSVTIME → D.OPS 11:27 → D.M2 11:27 → OBSVTIME 11:27 → D.M2 11:27 → UNDOADMOB 11:27 → EDSTATUS 08-31 13:45 → D.OPS 08-31 21:30 → D.M2 08-31 21:30
PROVIDERS: Family Medicine
DX: I25.119 Atherosclerotic heart disease of native coronary artery with unspecified angina pectoris (principal); I10 Essential (primary) hypertension; E78.5 Hyperlipidemia, unspecified; R06.02 Shortness of breath; Z01.812 Encounter for preprocedural laboratory examination

== ENCOUNTER 2018-01-15 18:38 | Emergency (ER) | payer MEDICARE ==
[~2018-01-15] VITALS: Ht 177.8 cm; Wt 88.6 kg
[~2018-01-15 18:38] MED LIST changes: +BAYER CHEWABLE81 MG PO; +CYCLOBENZAPRINE10 MG PO; +JANUVIA50 MG PO; +LEUCOVORIN CALCI5 MG PO; +METHOTREXATE2.5 MG PO
[2018-01-15 18:43] VITALS: Ht 177.8 cm; Wt 88.6 kg
[2018-01-15] MEDS ORDERED: AMOXICILLIN875 MG PO (20:53)
[2018-01-15 21:19] VITALS: BP 130/80
== END 2018-01-15 21:17 | disposition home or self-care (01) ==
LOC: D.ER 18:38
DX: J02.0 Streptococcal pharyngitis (principal); J44.9 Chronic obstructive pulmonary disease, unspecified; F17.200 Nicotine dependence, unspecified, uncomplicated

== ENCOUNTER → 2018-08-09 12:32 | Outpatient (CLI) | payer OTHER ==
[2018-01-15 18:43] VITALS: BMI 28.0
[~2018-08-09 12:32] MED LIST changes: +AMOXICILLIN875 MG PO; -IMDUR30 MG PO; +ISOSORBIDE MONO30 M1 PO; +LIPITOR40 MG PO; +LISINOPRIL5 MG PO; +OXYCODONE HCL5 M1 PO
== END | disposition home or self-care (01) ==
LOC: D.NM 12:32
DX: R10.11 Right upper quadrant pain (principal)

== ENCOUNTER 2018-08-23 06:50 | Day surgery (SDC) | payer OTHER ==
[2018-08-22 13:02] LABS: HEMATOCRIT 38.6 % (42.0-54.0); HEMOGLOBIN 13.6 g/dL (13.5-17.5); MCH 31.7 pg (26.0-34.0); MCHC 35.2 g/dL (31.0-37.0); MEAN PLATELET VOLUME 11.2 fL (7.4-10.4); RBC 4.29 10x6/uL (4.20-6.10); RDW 16.1 % (11.5-14.5); WBC 9.9 10x3/uL (4.8-10.8)
[2018-08-22 13:09] LABS: ANION GAP 16.3 mmol/L (8-16); CALCIUM 9.7 mg/dL (8.5-10.1); CREATININE - SERUM 1.2 mg/dL (0.6-1.3); POTASSIUM - SERUM 4.3 mmol/L (3.5-5.1)
[~2018-08-23] VITALS: Ht 177.8 cm; Wt 92.1 kg
[~2018-08-23 06:50] MED LIST changes: -OXYCODONE HCL5 M1 PO
[2018-08-23 07:18] VITALS: BP 117/77; Ht 177.8 cm; Wt 92.1 kg
[2018-08-23] MEDS ORDERED: OXYCODONE HCL5 M1 PO (10:11)
== END 2018-08-23 12:45 | disposition home or self-care (01) ==
LOC: D.OPS 06:50 → D.PAN 09:20 → D.OPS 10:30 → D.PAN 10:30 → D.OPS 11:30
PROVIDERS: Anesthesiology
DX: K81.1 Chronic cholecystitis (principal); E11.9 Type 2 diabetes mellitus without complications; J44.9 Chronic obstructive pulmonary disease, unspecified; I25.10 Atherosclerotic heart disease of native coronary artery without angina pectoris; Z01.812 Encounter for preprocedural laboratory examination

== ENCOUNTER 2019-07-10 18:23 | Inpatient (IN) | payer OTHER ==
[~2019-07-10] VITALS: Ht 177.8 cm; Wt 83.0 kg
--- NOTE | ~2019-07-10 | HEMODYNAMI ---
PATIENT:DEBBIE GAYTAN MEDICAL RECORD: [id number] : 65 [facility]# [id number] ADMISSION DATE: 07/10/19 Generatedon:07/11/201912:16 Patient name: DEBBIE GAYTAN Patient #: [id number] SSN: : 1965 Date of study: 07/11/2019 Page: Of Hemodynamic Procedure Report Patient Data Patient Demographics Procedure consent was obtained First Name: DEBBIE Gender: Male Last Name: LUKAS : 1965 Middle Initial: STEFAN Age: 53 year(s) Patient #: [id number] Race: Unknown Additional ID: [id number] Contact details Address: [place] [address] State: [place] City: [place] Zip code: [address] Past Medical History Allergies: No known allergies Admission Admission Data Admission Date: 07/10/2019 Admission Time: 21:34 Arrival Date: 07/11/2019 Arrival Time: 0:00 Admit Source: Other Insurance Payor: Private Room #: D.2114 health insurance [facility] #: [id number] Height (in.): 70 BSA: 2.01 (m2) Height (cm.): 177.8 BMI: 26.26 (kg/m2) Weight (lbs.): 183 Weight (kg.): 83.01 Lab Results Lab Result Date: 07/11/2019 Lab Result Time: 0:00 Biochemistry Name Units Result Min Max BUN mg/dl 19 --(----)*- 7 18 CK-MB ng/ml 0.8 --(*---)-- 0 3.6 Creatinine mg/dl 0.9 --(-*--)-- 0.6 1.3 eGFR ml/min 90 --(*---)-- 90 120 NONAFRICAN Troponin l ng/ml 0.017 --(-*--)-- 0 0.06 CBC Name Units Result Min Max Hematocrit % 33.9 *-(----)-- 42 54 Hemoglobin g/dl 11.8 *-(----)-- 13.5 17.5 Procedure Procedure Types Cath Procedure Diagnostic Procedure [facility] w/Coronaries Sedation Charges Moderate Sedation up to 15 minutes Procedure Description Procedure Date Procedure Date: 07/11/2019 Procedure Start Time: 11:54 Procedure End Time: 12:14 Procedure Staff Name Function Kenny Church MD Performing Physician Stephanie Diaz RN Nurse Ayah Smith RT Scrub Carmine Olivia RT Monitor Indication Chest pain Procedure Data Cath Procedure Fluoroscopy Diagnostic fluoroscopy Total fluoroscopy Time: 5.9 time: 5.9 min min Diagnostic fluoroscopy Total fluoroscopy dose: 614 dose: 614 mGy mGy Contrast Material Contrast Material Type Amount (ml) Isovue 300 117 Entry Location Entry Primary Successful Side Size Upsize Upsize Entry Closure Succes sful Closure Location (Fr) 1 (Fr) 2 (Fr) Remarks Device Remarks Femoral Left 5 Fr 6 Fr Exoseal artery Short Estimated blood loss: 10 ml Diagnostic catheters Device Type Used For End Catheter Placement MULTIPACK JL 4.0 5Fr Procedure catheter MULTIPACK 3DRC 5Fr Procedure catheter DIAGNOSTIC AR MOD 5Fr Procedure Catheter ([id number]) DIAGNOSTIC AL2 5Fr Procedure catheter ([id number]) MULTIPACK Pigtail 5 Fr Procedure catheter Procedure Complications No complications Procedure Medications Medication Administration Route Dosage 0.9% NaCl I.V. 100 ml/hr Oxygen etCO2 Nasal cannula 2 l/min Lidocaine 2% added to field 20 Heparin Flush Bag added to field 2 bags (1000units/500ml NS) Plavix P.O. 75 mg Versed I.V. 2 mg Fentanyl I.V. 50 mcg Versed I.V. 2 mg Fentanyl I.V. 50 mcg Hemodynamics Rest BSA: 2.01 (m2) HGB: 11.8 (g/dl) O2 Consumption: Estimated: 224.65 (ml/min) O2 Co nsumption indexed: Estimated:111.77 (ml/min/m) Heart Rate: 51 (bpm) Pressure Samples Time Site Value (mmHg) Purpose Heart Use Rate(bpm) 11:57 AO 97/51(70) Snapshot 65 12:09 LV 108/2,6 Snapshot 65 Gradients Valve Time Site Site Mean SEP/DFP Peak To Heart Use 1 2 (mmHg) (sec/min) Peak Rate (mmHg) (bpm) Aortic 12:10 LV AO 65 Snapshots Pre Cath Intra NCS Post Cath Vital Signs Time Heart Resp SPO2 etCO2 NIBP Rhythm Pain Sedation Rate (ipm) (%) (mmHg) (mmHg) Status Level (bpm) 11:43:15 51 11 100 40.4 144/78(97) SB 0 (11) 10(A) , No pain 11:48:14 60 16 100 27.7 Measuring NSR 0 (11) 10(A) , No pain 11:48:20 60 14 100 32.2 127/78(92) NSR 0 (11) 10(A) , No pain 11:52:32 66 13 98 27.7 117/73(84) NSR 0 (11) 10(A) , No pain 11:56:44 59 12 98 13 113/69(88) SB 0 (11) 10(A) , No pain 12:01:03 61 11 98 8.2 104/62(98) NSR 0 (11) 10(A) , No pain 12:05:10 63 11 95 14.9 113/67(97) NSR 0 (11) 10(A) , No pain 12:09:22 70 14 96 21.6 114/66(92) NSR 0 (11) 10(A) , No pain 12:13:30 62 12 98 18.7 112/67(87) NSR 0 (11) 10(A) , No pain Medications Time Medication Route Dose Verified Delivered Reason Notes E ffectiveness by by 11:42:21 0.9% NaCl I.V. 100 Kenny Stephanie used for ml/hr Lynnette Joe procedure MD DIEZ 11:42:28 Oxygen etCO2 2 Kenny Stephanie used for Nasal l/min LynnetteClay Diaz procedure cannula MD DIEZ 11:42:33 Lidocaine 2% added 20ml Kenny Cox for local to vial [facility] anesthetic field MD SALDANA 11:42:38 Heparin Flush added 2 Kenny Kenny used for Bag to bags [facility] John procedure (1000units/500ml field MD SALDANA NS) 11:45:04 Plavix P.O. 75 mg Kenny Corrala for LynnetteClay Diaz antiplatelet MD DIEZ therapy 11:51:42 Versed I.V. 2 mg Kenny Carmonayla for sedation Lynnette Joe MD RN 11:51:52 Fentanyl I.V. 50 Kenny Corrala for sedation [facility] Clay Diaz MD RN 11:57:19 Versed I.V. 2 mg Kenny Corrala for sedation St Clay Diaz MD RN 11:57:28 Fentanyl I.V. 50 Kenny Corrala for sedation [facility] Clay Diaz MD restaurant area manager Log Time Note 18:40:47 Pre procedure: left dorsailis pedis pulse 2+ Normal; easily identifiable; not easily obliterated 18:40:47 Left groin site verified by team. 18:40:47 H&P Date Dictated: 07/11/2019 Emergent; H&P N/A, Within 30 days and on chart.. 18:40:47 Left groin area was prepped with chlora-prep and draped in sterile fashion 11:29:20 Diagnostic Cath Status : Urgent 11:29:39 Indication : Chest pain 11:29:44 Procedure Status Urgent Heart Cath (IP). 11:29:46 Carmine GARCIA(R) sent for patient. Start room use. 11:29:49 Time tracking: Call back (After hours or weekends) 11:29:53 Plan of Care:Hemodynamics will remain stable., Cardiac rhythm will remain stable., Comfort level will be maintained., Respiratory function will remain adequate., Patient/ family verbilizes understanding of procedure., Procedure tolerated without complication., Recovers from procedure without complications.. 11:32:42 Arrival Date: 07/11/2019 12:00:00 AM 11:32:43 Admit Source: Other 11:32:49 Patient Height : 70 inches 11:32:52 Patient Weight : 183 lbs 11:33:07 Insurance Payor : Private health insurance 11:35:36 Lab results completed and on chart. 11:35:40 Stress Test: no; N/A ? 11:35:43 Risk of Mortality: 0.3 11:35:47 Risk of blood transfusion: 1.3 11:35:50 Risk of SULLY: 0.8 11:35:52 Alarms reviewed by R. N. 11:35:52 Sharps counted by scrub and verified by R.N. 11:37:09 Lab Result : BUN 19 mg/dl 11:37:09 Lab Result : Creatinine 0.9 mg/dl 11:37:09 Lab Result : Troponin l 0.017 ng/ml 11:37:09 Lab Result : CK-MB 0.8 ng/ml 11:37:09 Lab Result : eGFR NONAFRICAN 90 ml/min 11:37:09 Lab Result : Hemoglobin 11.8 g/dl 11:37:09 Lab Result : Hematocrit 33.9 % 11:37:20 Patient received from Med II to CCL 1 Alert and oriented. Tansferred to table in Supine position. 11:37:23 Signed procedure consent form obtained from patient. 11:37:24 Warm blankets applied, and adriel hugger turned on for patient comfort. 11:37:25 Correct patient and procedure confirmed by team. 11:37:28 Pre-procedure instructions explained to patient. 11:37:29 Pre-op teaching completed and patient verbalized understanding. 11:37:31 Family in patients room. 11:37:34 Patient NPO since Midnight. 11:38:03 Patient allergic to No known allergies 11:38:06 Is the patient allergic to Iodine/contrast media? No. 11:38:08 Was the patient premedicated? No 11:38:10 Is patient on blood thinner?Yes 11:38:22 ACC The patient was administered the following blood thiners within the last 24 hours: ACCPlavix 11:38:25 Patient diabetic? Yes. 11:38:26 If diabetic: On Metformin? Yes 11:38:36 If on Metformin: Last Dose? 07/10/2019 11:38:38 ----Pre-sedation anethsthesia assessment.---- 11:38:41 Previous problem with sedation/anesthesia? No ? 11:38:43 Snore? Yes 11:38:44 Sleep apnea? Yes 11:38:47 Deviated septum? No 11:38:49 Opens mouth fully? Yes 11:38:51 Sticks out tongue? Yes 11:38:56 Airway obstruction? Yes COPD 11:38:58 Dentures? No ? 11:40:46 Patient pain scale 0/10 ?. 11:41:15 IV patent on arrival in left forearm with 0.9% NaCl at O. 11:42:05 ECG and BP/O2 sat monitors applied to patient. 11:42:06 Vital chart was started 11:42:07 Full Disclosure recording started 11:42:09 Baseline sample Acquired. 11:42:13 Rhythm: sinus rhythm 11:42:17 Use device set Femoral Dx 11:42:21 0.9% NaCl 100 ml/hr I.V. was administered by Stephanie Diaz RN; used for procedure; Verbal order read back and verified. 11:42:28 Oxygen 2 l/min etCO2 Nasal cannula was administered by Stephanie Diaz RN; used for procedure; Verbal order read back and verified. 11:42:33 Lidocaine 2% 20ml vial added to field was administered by Kenny Church MD; for local anesthetic; Verbal order read back and verified. 11:42:38 Heparin Flush Bag (1000units/500ml NS) 2 bags added to field was administered by Kenny Church MD; used for procedure; Verbal order read back and verified. 11:45:04 Plavix 75 mg P.O. was administered by Stephanie Diaz RN; for antiplatelet therapy; Verbal order read back and verified. 11:50:00 Physician arrived 11:50:01 --------ALL STOP TIME OUT------ 11:50:01 Final Timeout: patient, procedure, and site verified with staff and physician. All members of the team are in agreement. 11:50:09 Fire Safety Assessment: A--An alcohol-based skin anteseptic being used preoperatively., C--Open oxygen or nitrous oxide is being used., D--An ESU, laser, or fiber-optic light is being used. 11:50:16 Physical assessment completed. ASA score P 2 - A patient with mild systemic disease as per Kenny Church MD. 11:50:20 1) 90+ Normal kidney functon but urine findings or structural abnormalities or genetic trait point to kidney disease. 11:50:23 Maximum allowable contrast dose (3.7 X eGFR X 0.75)250 ml. 11:50:27 Sedation plan: IV Moderate Sedation Medication:Versed, Fentanyl 11:50:59 ACIST Syringe (70830) opened to sterile field. 11:50:59 Bag Decanter () opened to sterile field. 11:51:00 Medline Cath Pack ([id number]) opened to sterile field. 11:51:02 ACIST Hand Control (19286) opened to sterile field. 11:51:02 ACIST Manifold (52388) opened to sterile field. 11:51:03 Tegaderm 4 x 4 (1626W) opened to sterile field. 11:51:04 DIAGNOSTIC Multipack 5Fr catheter set (YY8856) opened to sterile field. 11:51:05 SHEATH 5FR Orlando (MFP665) opened to sterile field. 11:51:05 EMERALD Guide Wire (118-828) opened to sterile field. 11:51:42 Versed 2 mg I.V. was administered by Stephanie Diaz RN; for sedation; Verbal order read back and verified. 11:51:52 Fentanyl 50 mcg I.V. was administered by Stephanie Diaz RN; for sedation; Verbal order read back and verified. 11:53:52 Procedure started. 11:54:25 Local anesthetic to left femerol artery with Lidocaine 2% by Kenny Church MD.INITIAL ACCESS ONLY 11:55:07 A 5 Fr sheath was inserted into the Left Femoral artery 11:55:46 A MULTIPACK JL 4.0 5Fr catheter was advanced over the wire and used for Procedure. 11:56:39 LCA angiography performed. 11:57:19 Versed 2 mg I.V. was administered by Stephanie Diaz RN; for sedation; Verbal order read back and verified. 11:57:28 Fentanyl 50 mcg I.V. was administered by Stephanie Diaz RN; for sedation; Verbal order read back and verified. 11:58:06 Catheter removed. 11:58:12 A MULTIPACK 3DRC 5Fr catheter was advanced over the wire and used for Procedure. 11:59:57 Catheter removed. unable to cannulate vessel. 12:00:12 A DIAGNOSTIC AR MOD 5Fr Catheter ([id number]) was advanced over the wire and used for Procedure. 12:00:28 ACCDominant side:Left 12:03:05 Catheter removed. unable to cannulate vessel. 12:04:17 A DIAGNOSTIC AL2 5Fr catheter ([id number]) was advanced over the wire and used for Procedure. 12:06:51 Catheter removed. unable to cannulate vessel. 12:06:54 SHEATH 6FR Orlando ([id number]) opened to sterile field. 12:07:09 GUIDE 6FR 3DRIGHT catheter ([id number]) opened to sterile field. 12:07:31 Sheath upsized to a 6 Fr Short. 12:07:41 6 Fr 3DRIGHT guide catheter was inserted over the wire 12:09:07 RCA angiography performed. 12:09:08 Catheter removed. 12:09:17 A MULTIPACK Pigtail 5 Fr catheter was advanced over the wire and used for Procedure. 12:10:41 LV angiography performed. 12:10:57 LV gram done using WILHELM 12:11:03 EF : 30 % 12:11:12 LV hemodynamics recorded. 12:11:18 Injector settings: Ml/sec: 10, Volume: 20, 12:11:19 Catheter removed. 12:11:26 EXOSEAL 6Fr (EX600) opened to sterile field. 12:11:37 Sheath removed intact; hemostasis achieved with Exoseal to the Left Femoral artery. 12:11:39 Procedure ended.(Physican Out) 12:12:10 Fluoroscopy time 05.90 minutes. 12:12:14 Fluoroscopy dose: 614 mGy 12:12:14 Flurop Dose total: 614 12:12:19 Dose Area Product 50506 mGy/cm. 12:12:24 Contrast amount:Isovue 300 117ml. 12:12:26 Maximum allowable dose exceeded? No. 12:12:27 Sharps counted by scrub and verified by R.N. 12:12:28 Insertion/operative site no bleeding no hematoma. 12:12:31 Post-op/insertion site Left Femoral artery dressed using a 4 x 4 and Tegaderm. 12:12:33 Post Procedure Pulses reassessed and unchanged 12:12:35 Post-procedure physical assessment completed. ASA score P 2 - A patient with mild systemic disease as per Kenny Church MD. 12:12:38 Post procedure rhythm: unchanged. 12:12:40 Estimated blood loss: 10 ml 12:12:42 Post procedure instruction explained to patient.Patient verbalizes understanding. 12:12:43 Patient needs reinforcement of post procedure teaching. 12:13:15 Procedure type changed to Cath procedure, Diagnostic procedure, LHC, [facility] w/Coronaries, Sedation Charges, Moderate Sedation up to 15 minutes 12:13:17 Procedure and supply charges have been captured, reviewed, submitted and are correct. 12:13:25 Procedure Complication : No complications 12:14:25 Vital chart was stopped 12:14:27 [facility] Findings: MVD- CABG consult 12:14:29 Operative report dictated upon procedure completion. 12:14:29 See physician's report for complete and final results. 12:14:31 Report given to PCU. 12:14:35 Patient transfered to PCU with Bed. 12:14:38 Procedure ended. 12:14:38 Full Disclosure recording stopped 12:14:46 End room use (Document Last) 12:15:22 End room use (Document Last) 12:15:53 End room use (Document Last) Device Usage Item Name Manufacture Quantity Catalog Hospital Part Current Minimal Lot# / Number Charge Number Stock Stock Serial# Code ACIST Acist 1 34482 174280 767296 257700 20 Syringe Medical (45797) Systems Inc Bag Decanter Microtek 1 2001S 008147 15358 111386 5 (2001S) Medical Inc. Medline Cath Medline 1 [id number] 697789 72704 745312 5 Pack ([id number]) ACIST Hand Acist 1 58085 260809 360852 560213 5 Control Medical (62449) Systems Inc ACIST Acist 1 06324 535273 312322 454401 5 Manifold Medical (25866) Systems Inc Tegaderm 4 x 3M 1 1626W 170759 580237 021925 5 4 (1626W) DIAGNOSTIC Cardinal 1 [id number] 062240 63570 749274 30 Multipack Health 5Fr catheter set (AS7135) SHEATH 5FR Terumo 1 [id number] 707277 237315 200962 5 Orlando (VWJ919) EMERALD Cardinal 1 502-455 305195 565962 026890 5 Guide Wire Health (502-455) MULTIPACK JL Cardinal 1 606503 5 4.0 5Fr Health catheter MULTIPACK Cardinal 1 714242 5 3DRC 5Fr Health catheter DIAGNOSTIC Cardinal 1 [id number] 811861 530310 844285 15 AR MOD 5Fr Health Catheter (133276A) DIAGNOSTIC Cardinal 1 [id number] 822766 253494 130357 15 AL2 5Fr Health catheter (337002P) SHEATH 6FR Terumo 1 DNJ805 849710 028272 383439 40 Orlando (AWK522) GUIDE 6FR Medtronic 1 [id number] 618266 186695 838080 1 3DRIGHT catheter ([id number]) MULTIPACK Cardinal 1 293730 5 Pigtail 5 Fr Health catheter EXOSEAL 6Fr Cardinal 1 EX600 326557 411794 462400 10 (EX600) Health Signature Audit [place] Stage Time Signature Unsigned Intra-Procedure 07/11/2019 Carmine Olivia 12:15:22 PM RT(R) Intra-Procedure 07/11/2019 Stephanie Diaz 12:15:53 PM RN Intra-Procedure 07/11/2019 Kenny Wright 12:16:24 PM Clay [place] [address] [place] [address]
[~2019-07-10 18:23] MED LIST changes: +OXYCODONE HCL5 M1 PO
[2019-07-10 19:05] VITALS: BP 115/79
[2019-07-10 19:08] LABS: BASOPHILS 0.6 % (0-2); EOSINOPHILS 3.7 % (0-7); HEMATOCRIT 35.1 % (42.0-54.0); HEMOGLOBIN 12.3 g/dL (13.5-17.5); IMMATURE GRANULOCYTES 0.2 % (0-5); LYMPHOCYTES 29.4 % (15-50); MCV 85.6 fL (80.0-100.0); MEAN PLATELET VOLUME 10.6 fL (7.4-10.4); MONOCYTES 8.6 % (2-11); NEUTROPHILS 57.5 % (40-80); PLATELET COUNT 249 10x3/uL (130-400); RDW 16.4 % (11.5-14.5); WBC 6.3 10x3/uL (4.8-10.8)
[2019-07-10 19:17] LABS: APTT 30.4 SECONDS (22.8-39.4); CALC OSMOLALITY 290 mosm/kg (275-300); CALCIUM 9.1 mg/dL (8.5-10.1); CARBON DIOXIDE 24.5 mmol/L (21.0-32.0); CHLORIDE - SERUM 102 mmol/L (98-107); CREATININE - SERUM 1.2 mg/dL (0.6-1.3); GLUCOSE 249 mg/dL (74-106); INR 1.05 (0.85-1.17); POTASSIUM - SERUM 4.1 mmol/L (3.5-5.1); PROTIME 13.2 SECONDS (11.6-15.0); SODIUM 139 mmol/L (136-145); UREA NITROGEN 26 mg/dL (7-18); eGFR NON AFRICAN AMERICAN 67 mL/min (90-120)
[2019-07-10 19:22] VITALS: BP 101/66
[2019-07-10 19:34] LABS: ALBUMIN 3.4 g/dL (3.4-5.0); ALKALINE PHOSPHATASE 118 U/L (46-116); ALT (SGPT) 24 U/L (10-68); BILIRUBIN - TOTAL 0.54 mg/dL (0.2-1.3); CKMB 0.8 U/L (0.0-3.6); CREATINE KINASE 79 UL (21-232); MAGNESIUM - SERUM 1.4 mg/dL (1.8-2.4); PROTEIN - SERUM 7.5 g/dL (6.4-8.2)
[2019-07-10 19:36] LABS: TROPONIN-I < 0.017 ng/mL (0.000-0.060)
[2019-07-10 19:58] VITALS: BP 120/66
[2019-07-10 22:52] VITALS: BP 102/51; BMI 26.6
--- NOTE | 2019-07-10 22:59 | NUR ---
RECIEVED REPORT FROM CELINE RAMEY, PT AAOX3, VSS, NO S/S OF RT DISTRESS. PT PLACED ON TELEMETRY 89 NS. PT DENIES ANY CHEST PAIN AT THIS TIME. PT PLACED NPO AFTER MIDNIGHT. PT DENIES ANY FURTHER NEEDS AT THIS TIME. WILL CPOC. CL WITHIN REACH, BED IN LOW, SR UP X2.
[2019-07-11] VITALS: BP 102/51
[2019-07-11 00:34] LABS: HEMATOCRIT 32.4 % (42.0-54.0); HEMOGLOBIN 11.3 g/dL (13.5-17.5)
[2019-07-11 01:00] LABS: CKMB 0.7 U/L (0.0-3.6); CREATINE KINASE 78 UL (21-232); TROPONIN-I < 0.017 ng/mL (0.000-0.060)
[2019-07-11 04:00] VITALS: BP 96/60
[2019-07-11 06:20] LABS: BASOPHILS 0.5 % (0-2); EOSINOPHILS 3.9 % (0-7); HEMATOCRIT 33.9 % (42.0-54.0); HEMOGLOBIN 11.8 g/dL (13.5-17.5); IMMATURE GRANULOCYTES 0.2 % (0-5); MCH 29.7 pg (26.0-34.0); MCHC 34.8 g/dL (31.0-37.0); MCV 85.4 fL (80.0-100.0); MEAN PLATELET VOLUME 10.6 fL (7.4-10.4); MONOCYTES 8.2 % (2-11); NEUTROPHILS 53.2 % (40-80); PLATELET COUNT 205 10x3/uL (130-400); RBC 3.97 10x6/uL (4.20-6.10); RDW 16.1 % (11.5-14.5); WBC 6.4 10x3/uL (4.8-10.8)
[2019-07-11 06:58] LABS: CALCIUM 8.3 mg/dL (8.5-10.1); CARBON DIOXIDE 25.2 mmol/L (21.0-32.0); CHLORIDE - SERUM 106 mmol/L (98-107); CKMB 0.8 U/L (0.0-3.6); CREATINE KINASE 71 UL (21-232); CREATININE - SERUM 0.9 mg/dL (0.6-1.3); FERRITIN 109 ng/mL (3-244); MAGNESIUM - SERUM 1.5 mg/dL (1.8-2.4); PHOSPHOROUS 3.6 mg/dL (2.5-4.9); POTASSIUM - SERUM 3.8 mmol/L (3.5-5.1); SODIUM 141 mmol/L (136-145); eGFR NON AFRICAN AMERICAN > 90 mL/min (90-120)
[2019-07-11 06:59] LABS: CALC OSMOLALITY 281 mosm/kg (275-300); GLUCOSE 77 mg/dL (74-106); TROPONIN-I < 0.017 ng/mL (0.000-0.060); UREA NITROGEN 19 mg/dL (7-18)
[2019-07-11 07:05] LABS: % SATURATION 43 % (15-55); IRON 120 ug/dl (35-150); TOTAL IRON BIND CAPACITY 276 ug/dl (260-445); UNSAT IRON BIND CAPACITY 156 ug/dl (150-375)
[2019-07-11 08:00] VITALS: BP 115/64
[2019-07-11 09:12] LABS: ALBUMIN 3.3 g/dL (3.4-5.0); ALKALINE PHOSPHATASE 111 U/L (46-116); ALT (SGPT) 23 U/L (10-68); LIPASE 277 U/L (73-393); PROTEIN - SERUM 7.1 g/dL (6.4-8.2)
[2019-07-11 09:26] LABS: BILIRUBIN - TOTAL 0.34 mg/dL (0.2-1.3)
[2019-07-11 09:51] LABS: CHOL - HDL RATIO 6.1 ratio (2.3-4.9); LDL-HDL RATIO 2.8 ratio (1.5-3.5)
--- NOTE | 2019-07-11 11:31 | NUR ---
FSBS 88 PT TO CHAIR MAKER VIA BED PER CHAIR MAKER STAFF
[2019-07-11 11:36] VITALS: BP 128/74
--- NOTE | 2019-07-11 12:30 | NUR ---
RECEIVED PT BACK TO ROOM FROM CATH AB VIA BED VSS PPPX4 DRSG TO LT GROIN C/D/I WILL CONTINUE TO MONITOR
[2019-07-11 16:04] VITALS: BP 115/66
--- NOTE | 2019-07-11 19:19 | NUR ---
RECEIVED BEDSIDE REPORT. PATIENT IS ALERT AND ORIENTED, RETING COMFORTABLY IN BED. RESPIRATIONS ARE EVEN AND UNLABORED. NO S/S OF DISTRESS. NO C/OPAIN. CALL LIGHT WITHIN REACH. NEEDS MET.
[2019-07-11 20:15] VITALS: BP 111/56
[2019-07-12] VITALS: BP 137/96
[2019-07-12 00:30] VITALS: BP 123/62
[2019-07-12 04:30] VITALS: BP 115/81
[2019-07-12 05:19] LABS: BASOPHILS 0.3 % (0-2); EOSINOPHILS 2.4 % (0-7); HEMOGLOBIN 11.4 g/dL (13.5-17.5); IMMATURE GRANULOCYTES 0.2 % (0-5); LYMPHOCYTES 21.7 % (15-50); MCH 29.7 pg (26.0-34.0); MCHC 34.5 g/dL (31.0-37.0); MCV 85.9 fL (80.0-100.0); MEAN PLATELET VOLUME 10.6 fL (7.4-10.4); MONOCYTES 3.9 % (2-11); NEUTROPHILS 71.5 % (40-80); PLATELET COUNT 193 10x3/uL (130-400); RBC 3.84 10x6/uL (4.20-6.10); RDW 16.1 % (11.5-14.5)
[2019-07-12 05:31] LABS: WBC 8.7 10x3/uL (4.8-10.8)
[2019-07-12 05:42] LABS: % SATURATION 31 % (15-55); IRON 91 ug/dl (35-150); TOTAL IRON BIND CAPACITY 291 ug/dl (260-445); UNSAT IRON BIND CAPACITY 200 ug/dl (150-375)
[2019-07-12 06:15] LABS: CALC OSMOLALITY 278 mosm/kg (275-300); CALCIUM 8.3 mg/dL (8.5-10.1); CARBON DIOXIDE 26.2 mmol/L (21.0-32.0); CHLORIDE - SERUM 104 mmol/L (98-107); FERRITIN 136 ng/mL (3-244); MAGNESIUM - SERUM 1.4 mg/dL (1.8-2.4); SODIUM 138 mmol/L (136-145); UREA NITROGEN 18 mg/dL (7-18); eGFR NON AFRICAN AMERICAN 83 mL/min (90-120)
[2019-07-12 06:17] LABS: GLUCOSE 122 mg/dL (74-106); PHOSPHOROUS 2.6 mg/dL (2.5-4.9)
[2019-07-12 09:42] VITALS: BP 144/91
--- NOTE | 2019-07-12 12:05 | CN ---
PATIENT NAME:DEBBIE GAYTAN MEDICAL RECORD: [id number] : 65 LOCATION:D. D.2114 ADMIT DATE: 07/11/19 ACCOUNT: [id number] CONSULTING PHYSICIAN: JOSE DE JESUS TYLER MD REFERRING PHYSICIAN: BEBO CRUMP MD DATE OF CONSULTATION: 07/11/2019 HISTORY OF PRESENT ILLNESS: A 53-year-old gentleman with known history of coronary artery disease, status post intervention via Dr. Montes in August of 2017. Has been having intermittent chest pain over the past probably 2 weeks, rest symptomology last couple of days accompanied by shortness of breath, nausea, increasing effort in tolerance, had severe rest symptomology yesterday. He was admitted for further evaluation. PAST MEDICAL HISTORY: Includes: 1. History of hypertension. 2. Hyperlipidemia. 3. Diabetes mellitus. 4. Rheumatoid arthritis on remittive agents. ALLERGIES: None known. MEDICATIONS: Include Glucophage 1 gram b.i.d., glipizide 15 b.i.d., hydrocodone 5 mg q.4 p.r.n., [place] 1 mg p.o. q.6 p.r.n., Neurontin 600 t.i.d., aspirin 81 every day, lisinopril 5 every day, isosorbide 30 mg every day, gemfibrozil 600 b.i.d., carvedilol 6.25 every day, atorvastatin 40 every day, methotrexate 15 mg weekly as well as Plavix every day. SOCIAL HISTORY: Smokes less than a pack a day. Occasional recreational marijuana use, nondrinker. No set exercise program. REVIEW OF SYSTEMS: The patient reports easy bruising but reports no swollen glands. The patient reports no fever, no night sweats, no significant weight gain, no significant weight loss. No significant exercise tolerance. The patient reports no dry eyes, no irritation, no vision change. Patient reports no difficulty hearing and no ear pain. Patient reports no frequent nose bleeds or nose and sinus problems. Patient reports on arm pain on exertion. No shortness of breath while lying down. No history of heart murmur. Patient reports no cough, no wheezing or coughing up blood. Patient reports no abdominal pain, no vomiting. Normal appetite. No diarrhea and not vomiting blood. No nausea and no constipation. Patient reports no incontinence. No difficulty urinating. No hematuria. No increased frequency. Patient reports no muscle aches. No weakness, no arthralgias, no back pain. No swelling of the extremities. Patient reports no abnormal mole, no jaundice, no rashes. Reports no loss of consciousness. No weakness and no numbness. No seizures, dizziness, or headaches. The patient reports no depression, no sleep disturbance, feeling safe in a relationship and no alcohol abuse. Patient reports on fatigue. Reports no runny nose or sinus pressure. No itching, no hives, and no frequent sneezing. PHYSICAL EXAMINATION: GENERAL: Pleasant gentleman with no acute distress, appears stated age. VITAL SIGNS: Blood pressure 96/60, pulse 72 and regular. HEENT: Normocephalic, atraumatic. NECK: No JVD or bruit. CONSULT REPORT [id number] DEBBIE GAYTAN HEART: Regular, II/ systolic ejection murmur. LUNGS: Good air excursion. ABDOMEN: Soft, nontender. EXTREMITIES: Pulses are well preserved, 2+, with no edema. DIAGNOSTIC DATA: EKG shows nonspecific ST-T changes. IMPRESSION: Acute coronary syndrome, now with rest symptomology. PLAN: For angiography, intervention based on above. TRANSINT:[id number] Voice Confirmation ID: [id number] DOCUMENT ID: [id number] JOSE DE JESUS TYLER MD at 1205 CC: [id number] DICTATION DATE: 07/11/19 0926 FISH TRAPPER: 07/11/19 1014 ADM IN [place] [id number] [place] [address]
--- NOTE | 2019-07-12 12:05 | OP ---
PATIENT NAME: DEBBIE GAYTAN MEDICAL RECORD: [id number] :65 LOCATION:D.M2 D.2114 ADMISSION DATE:07/11/19 SURGEON: JOSE DE JESUS TYLER MD DATE OF OPERATION: 07/11/2019 PROCEDURES: Left heart catheterization, selective coronary angiography, left femoral artery approach. CATHETERS: A 5-Dutch sheath, 5/4 left and right Jyoti, 5/4 pig. We did exchange for a 6-Dutch sheath and 3 RDC guiding catheter to engage the right. FINDINGS: Left ventriculography, 30-degree WILHELM view shows inferior hypokinesis as well as mild anterior hypokinesis. Overall, function reduced 30% to 35%. CORONARY ANATOMY: LEFT MAIN: Left main is free of disease. LAD: LAD has about 70% stenosis prior to the previously placed stent. There is a high diagonal versus ramus branch with 90% stenosis at the ostium. CIRCUMFLEX: About 70% stenosis in its distal portion. RIGHT CORONARY ARTERY: Totally occluded, fills via left to right collaterals. IMPRESSION: Ostium of the ramus representing the technical challenge being right at the LAD and left main area. Will have Dr. Nicholson review films for possible coronary artery bypass grafting, although targets remain marginal, has typical diabetic as well. TRANSINT:[id number] Voice Confirmation ID: [id number] DOCUMENT ID: [id number] JOSE DE JESUS TYLER MD at 1205 CC: [id number] DICTATION DATE: 07/11/19 1233 PRIMARY CARE COORDINATOR: 07/11/19 192 ADM IN [facility] [address] [place] [address]
[2019-07-12 14:11] VITALS: BMI 26.2
--- NOTE | 2019-07-12 16:20 | NUR ---
DR. CRUM NURSE PAGED TWICE IN [facility] TO [place] ORDER. JOHNIE NOTIFIED THAT DR ARCE HAS ORDERED A CAROTID US. JOHNIE STATES TO [place] HOME AFTER US.
[2019-07-12 16:30] VITALS: BP 147/84
[2019-07-12 17:12] VITALS: Ht 177.8 cm; Wt 83.0 kg
--- NOTE | 2019-07-12 19:19 | NUR ---
PATIENT DISCHARGED. PATIENT ESCORTED OFF FLOOR BY SPRAY DYER. IV REMOVED BY DAYSHIFT NURSE. TELEMETRY RETURNED TO INTERTYPE OPERATOR.
--- NOTE | 2019-07-13 08:59 | MORECARE ---
CASE MANAGEMENT DISCHARGE SUMMARY PATIENT: DEBBIE GAYTAN UNIT: [id number] ADM DATE: 07/11/19 AGE: 53 : 65 SEX: M ROOM/BED: D.2114 AUTHOR: CHERELLE ALEXANDRA PHYSICIAN: REFERRING PHYSICIAN: BEBO CRUMP MD DATE OF SERVICE: 07/13/19 Discharge Plan Patient Name: DEBBIE GAYTAN [facility] [facility] 1965 Planned Disposition: Home Anticipated Discharge Date: 07/12/19 Discharge Date: 07/12/2019 Expected LOS: 1 Initial Reviewer: [email or web address] Initial Review Date: 07/13/2019 Generated: 07/13/19 9:58 am Patient Name: DEBBIE GAYTAN Page [phone] at 0859 All edits/amendments must be made on the electronic document DICTATION DATE: 07/13/19 0858 MEDICAL CLAIMS EXAMINER: LILIANA 07/13/19 0858 RPT#: [id number] DC DATE:07/12/19 STATUS: DIS IN [facility] [address] [place] [address] END OF REPORT
== END 2019-07-12 19:21 | disposition home or self-care (01) | DRG 287 ==
LOC: D.ER 18:23 → OBSVTIME 21:34 → D.M2 21:34
PROVIDERS: Emergency Medicine; Internal Medicine Interventional Cardiology; ADMIT Family Medicine; ATTEND Family Medicine
PROC: B2151ZZ Fluoroscopy of Left Heart using Low Osmolar Contrast (ICD-10-PCS; 2019-07-11)
PROC: 4A023N7 Measurement of Cardiac Sampling and Pressure, Left Heart, Percutaneous Approach (ICD-10-PCS; 2019-07-11)
PROC: B2111ZZ Fluoroscopy of Multiple Coronary Arteries using Low Osmolar Contrast (ICD-10-PCS; principal; 2019-07-11 11:30)
DX: I25.119 Atherosclerotic heart disease of native coronary artery with unspecified angina pectoris (principal); I50.30 Unspecified diastolic (congestive) heart failure; I11.0 Hypertensive heart disease with heart failure; J44.9 Chronic obstructive pulmonary disease, unspecified; E78.5 Hyperlipidemia, unspecified; E83.42 Hypomagnesemia; E11.40 Type 2 diabetes mellitus with diabetic neuropathy, unspecified; D64.9 Anemia, unspecified; F17.210 Nicotine dependence, cigarettes, uncomplicated; Z86.73 Personal history of transient ischemic attack (TIA), and cerebral infarction without residual deficits

== ENCOUNTER 2019-07-18 14:00 | Inpatient (IN) | payer OTHER ==
[~2019-07-18] VITALS: Ht 177.8 cm; Wt 86.4 kg
[2019-07-18] MEDS ORDERED: MULTI-DAY VITAM1 TAB PO (14:38)
[2019-07-18] MEDS ORDERED: BAYER CHEWABLE81 MG PO (14:39)
[2019-07-18] MEDS ORDERED: SINGULAIR10 MG (14:48)
[2019-07-18] MEDS ORDERED: CYCLOBENZAPRINE10 MG (14:49)
[2019-07-18 16:05] LABS: BASOPHILS 0.4 % (0-2); EOSINOPHILS 5.1 % (0-7); HEMATOCRIT 36.8 % (42.0-54.0); HEMOGLOBIN 13.2 g/dL (13.5-17.5); IMMATURE GRANULOCYTES 0.3 % (0-5); LYMPHOCYTES 30.3 % (15-50); MCHC 35.9 g/dL (31.0-37.0); MCV 86.4 fL (80.0-100.0); MEAN PLATELET VOLUME 10.7 fL (7.4-10.4); MONOCYTES 7.2 % (2-11); NEUTROPHILS 56.7 % (40-80); RBC 4.26 10x6/uL (4.20-6.10); RDW 16.5 % (11.5-14.5); WBC 7.5 10x3/uL (4.8-10.8)
[2019-07-18 16:14] LABS: APTT 32.7 SECONDS (22.8-39.4); INR 1.03 (0.85-1.17); PROTIME 13.5 SECONDS (11.6-15.0)
[2019-07-18 16:19] LABS: PLATELET COUNT 310 10x3/uL (130-400)
[2019-07-18 16:25] LABS: APPEARANCE CLEAR (CLEAR); BILIRUBIN NEGATIVE (NEGATIVE); COLOR YELLOW (YELLOW); GLUCOSE NEGATIVE (NEGATIVE); KETONE NEGATIVE (NEGATIVE); NITRITE NEGATIVE (NEGATIVE); PROTEIN 1+ mg/dL (NEGATIVE); SPECIFIC GRAVITY 1.025 (1.005-1.020); UROBILINOGEN NORMAL (NORMAL)
[2019-07-18 16:38] LABS: ALBUMIN 3.9 g/dL (3.4-5.0); ALKALINE PHOSPHATASE 115 U/L (46-116); ALT (SGPT) 29 U/L (10-68); BILIRUBIN - TOTAL 0.57 mg/dL (0.2-1.3); CALC OSMOLALITY 284 mosm/kg (275-300); CALCIUM 9.2 mg/dL (8.5-10.1); CARBON DIOXIDE 26.8 mmol/L (21.0-32.0); CHLORIDE - SERUM 102 mmol/L (98-107); CHOLESTEROL, TOTAL 169 mg/dL (0-200); GLUCOSE 106 mg/dL (74-106); PHOSPHOROUS 3.3 mg/dL (2.5-4.9); POTASSIUM - SERUM 4.1 mmol/L (3.5-5.1); PROTEIN - SERUM 8.1 g/dL (6.4-8.2); SODIUM 141 mmol/L (136-145); T4 THYROXIN - FREE 1.02 ng/dL (0.76-1.46); THYROID STIMULATING HORMONE 0.44 uIU/mL (0.36-3.74); UREA NITROGEN 25 mg/dL (7-18); URIC ACID 5.1 mg/dL (2.6-7.2); eGFR NON AFRICAN AMERICAN 83 mL/min (90-120)
[2019-07-20] VITALS (38 sets, daily range): BP systolic 102–137; BP diastolic 55–88; BMI 25.6; BMI 27.2
--- NOTE | 2019-07-20 13:27 | NUR ---
REC'D PT TO CVICU TOA 1258. ALL MONITORING EQUIPMENT ATTACHED AND ALARMS SET. CXR DONE. DR BRIGHT AT BS UPON ARRIVAL. AMIODARONE AT 1MCG/MIN AND ILANA AT 0.4MCG/KG/MIN. TITRATED DOWN TO 0.2MCG/KG/MIN. RT AT BS. CXR AND ABG'S.
--- NOTE | 2019-07-20 13:33 | NUR ---
REPORTED K+ 3.[address] BRIGHT AT BS. NO NEW ORDERS.
--- NOTE | 2019-07-20 15:07 | NUR ---
RT WEANING VENT SETTINGS. CPAP TRIALS STARTED AND PT FOLLOWS COMMAND AND IS RESPONDING WELL TO VENT ADJUSTMENTS FOR WEANING.
--- NOTE | 2019-07-20 16:35 | NUR ---
ABG,NIF AND VC CALLED TO DR BRIGHT. REC'D ORDER TO EXTUBATE.
--- NOTE | 2019-07-20 16:40 | NUR ---
PT EXTUBATED TO 4LNC. SPO2 100%.
--- NOTE | 2019-07-20 17:15 | NUR ---
PT C/O PAIN. RATING 8 ON SCALE OF 1 TO 10. MORPHINE GIVEN.
--- NOTE | 2019-07-20 17:57 | NUR ---
WORKING WITH PT I.S. PT PULLS 500 X 3. C/O PAIN TO CHEST INCISION. PO PAIN MEDS GIVEN.
--- NOTE | 2019-07-20 19:25 | NUR ---
REPORT REC'D AND CARE ASSUMED, REC'D PT AWAKE, ALERT, AND ORIENTED X 4, O2 @ 3 LITERS VIA NC, RIJ CVL DRSG CDI WITH PLASMALYTE @ 100CC/HR, NITROGLCYERIN @ 5MCG/MIN OR 1.5CC/HR, INSULIN @ 1 UNIT/HR, ZINACEF @ 11.4CC/HR, AND AMIODARONE @ 0.5MG/MIN OR 16.7CC/HR, MIDSTERNAL DRSG CDI, SUBSTERNAL DRSG CDI WITH PACER WIRES COILED, MEDIASTINAL CT X 2 TO 20CM H2O SUCTION, SANGUINOUS DRAINAGE NOTED, DRSG CDI, LEFT SUBSTERNAL ELIZABETH DRAIN COMPRESSED WITH SANGUINOUS DRAINAGE, RIGHT RADIAL PEEWEE WITH FLEXION BOARD IN USE, LEVELED AND ZEROED WITH RETURN OF APPROPRIATE WAVEFORM, CRITICORE BLACK PATENT DRAINING CLEAR YELLOW URINE, LEFT LEG WITH COBAN CDI, PPP, SR UP X 2, VISIBLE TO NURSES STATION.
--- NOTE | 2019-07-20 19:55 | NUR ---
MORPHINE DOSE PROVIDED AT TIME, WILL SPLIT OVER THE HOUR, 1MG GIVEN SLOW IVP AT THIS TIME, PT RATING PAIN "8" ON 0-10 PAIN SCALE.
--- NOTE | 2019-07-20 20:35 | NUR ---
1MG MORPHINE GIVEN, PT REPORTS PAIN SLIGHTLY BETTER, FAMILY AT BS, UPDATE GIVEN AND QUESTIONS ANSWERED.
--- NOTE | 2019-07-20 21:15 | NUR ---
EVENING MEDS GIVEN WITH SIPS OF WATER, PT TOLERATING CLEAR LIQUIDS, DENIES NAUSEA.
--- NOTE | 2019-07-20 21:45 | NUR ---
PT COMPLAINS OF CHEST DISCOMFORT RATING "7-8" ON 0-10 PAIN SCALE, PERCOCET 10 GIVEN PO AT THIS TIME, PT ASSISTED TO REPOSITION FOR COMFORT, SIPS OF WATER PROVIDED ON REQUEST.
--- NOTE | 2019-07-20 23:00 | NUR ---
REASSESSMENT COMPLETED, PT MORE AWAKE AND CONVERSANT, WEAKLY PULLS 500 ON IS AND WEAK COUGH NOTED, EXPLAINED TO PT THE REASON FOR DEEP BREATHING AND COUGHING, VERBALIZES UNDERSTANDING, WILL MONITOR CLOSELY FOR CHANGES.
--- NOTE | 2019-07-20 23:48 | NUR ---
PT UNCOMFORTABLE IN BED, REPOSITIONED PT UP IN BED AND BED PAD STRAIGHTENED, ICE CHIPS PROVIDED, DRSGS TO MIDSTERNUM AND SUBSTERNUM CDI, ELIZABETH DRAIN REMAINS TO BULB SUCTION, NITROGLYCERIN CONTINUES AT 4.5CC/HR OR 15 MCG/MIN, SR UP X 2, VISIBLE TO NURSES STATION.
[2019-07-21] VITALS (45 sets, daily range): BP systolic 96–155; BP diastolic 43–89
--- NOTE | 2019-07-21 01:20 | NUR ---
PERCOCET 5 GIVEN PO FOR PAIN RATING OF 4-5, PT DOZING AT INTERVALS, BP STABLE, NITROGLYCERIN CONTINUES @ 15MCG/MIN
--- NOTE | 2019-07-21 02:30 | NUR ---
PT ASSISTED X 2 TO DANGLE ON SIDE OF BED, APPROX 20CC FROM ANTERIOR TUBE NOTED, PT DANGLED FOR 10MINUTES AND TOLERATED WELL, CHG BATH PROVIDED WHILE SITTING UP, ASSISTED BACK ON BED AND UP FOR COMFORT.
--- NOTE | 2019-07-21 02:56 | NUR ---
PT COMPLAINING OF INCISIONAL PAIN AND RIB PAIN, RATING "9" ON 0-10 PAIN SCALE, 2MG MORPHINE GIVEN SLOW IVP, BP STABLE, WILL MONITOR CLOSELY FOR CHANGES.
--- NOTE | 2019-07-21 05:00 | NUR ---
RADIOLOGY AT BS FOR AM CXR
--- NOTE | 2019-07-21 05:55 | NUR ---
AM LAB DRAWN FROM CVL AND SENT TO LAB
[2019-07-21 06:33] LABS: HEMATOCRIT 28.8 % (42.0-54.0); MCH 29.9 pg (26.0-34.0); MCHC 34.7 g/dL (31.0-37.0); MCV 86.2 fL (80.0-100.0); MEAN PLATELET VOLUME 10.3 fL (7.4-10.4); RBC 3.34 10x6/uL (4.20-6.10); RDW 17.1 % (11.5-14.5); WBC 13.7 10x3/uL (4.8-10.8)
[2019-07-21 07:26] LABS: ALBUMIN 2.9 g/dL (3.4-5.0); ANION GAP 11.7 mmol/L (8-16); BILIRUBIN - TOTAL 0.79 mg/dL (0.2-1.3); CALCIUM 7.3 mg/dL (8.5-10.1); CARBON DIOXIDE 27.5 mmol/L (21.0-32.0); CREATININE - SERUM 1.1 mg/dL (0.6-1.3); MAGNESIUM - SERUM 1.6 mg/dL (1.8-2.4); PHOSPHOROUS 3.5 mg/dL (2.5-4.9); POTASSIUM - SERUM 4.2 mmol/L (3.5-5.1); PROTEIN - SERUM 5.9 g/dL (6.4-8.2)
--- NOTE | 2019-07-21 10:16 | OP ---
PATIENT NAME: DEBBIE GAYTAN MEDICAL RECORD: [id number] :65 LOCATION:D.CVI D.CV06 ADMISSION DATE:07/20/19 SURGEON: DARIAN BRIGHT MD DATE OF OPERATION: 07/20/2019 SURGEON: Darian Bright MD PROCEDURE PERFORMED: Coronary bypass graft times 2 (left internal mammary to LAD, reverse saphenous vein graft from aorta to obtuse marginal/ramus intermedius). PREOPERATIVE DIAGNOSIS: Coronary artery disease and previous myocardial infarction. POSTOPERATIVE DIAGNOSIS: Coronary artery disease and previous myocardial infarction. ANESTHESIA: General endotracheal anesthesia. Blood loss total cardiopulmonary bypass with cell Saver retransfusion. COMPLICATIONS: None. SPECIMENS: None. CONDITION: Stable. DISPOSITION: CV ICU. OPERATIVE FINDINGS: 1. Thin wall greater saphenous vein. 2. Good quality left internal mammary artery. The LAD was 2.0 mm. 3. Intramyocardial bifurcating vessel, but no more distal target in the OM and no inferior wall target as the right was calcified throughout and the posterior descending artery was less than a millimeter. 4. Evidence of old inferior infarct with scar. OPERATIVE INDICATION: Coronary artery disease. DESCRIPTION OF PROCEDURE: The patient was brought to the operating suite. General anesthesia was obtained, the patient prepped and draped. Greater saphenous vein harvested from right lower extremity utilizing endoscopic technique. Side branch divided with electrocautery. The vessel ligated proximally and distally and removed. Side branches were clipped or tied and leakage sites were oversewn. The leg was later closed in 2 layers. Separate incision was made at the groin to ensure no larger vein was present at the groin. Median sternotomy incision was made. Subcutaneous tissue was divided by electrocautery. The sternum was divided with a saw. The left hemisternum was elevated. Left pleural cavity was entered. Left internal mammary was taken as a pedicle graft. Sternal retractor was placed. Pericardium was opened. Heparin was given. Aorta was cannulated. Dual stage venous cannula was inserted. Internal mammary OPERATIVE REPORT [id number] DEBBIE GAYTAN clipped distally and made ready for anastomosis. Activated clotting times were appropriately elevated. The patient was placed on cardiopulmonary bypass. Sites for distal anastomosis were selected. Crossclamp was placed. The patient's temperature was drifted downwardly cardioplegia given antegrade and repeated at 15 minute intervals including down the completed vein graft. Distal anastomosis was performed in standard technique. Proximal anastomosis with single cross-clamp technique. The aortic root de-aired and flow restored. Proximal and distal anastomotic sites inspected for bleeding, resumed sinus rhythm, weaned from cardiopulmonary bypass and was stable. The patient was decannulated. Aortic cannula site was oversewn. Protamine was given. Thorough irrigation was undertaken. Hemostasis was ensured. The graft lay appropriately. A good Doppler signal was noted. Drains were placed in mediastinal left pleural cavity. Ventricular pacing wires were placed. Pericardial fat was loosely reapproximated. Left chest was evacuated and irrigated. The internal mammary harvest site inspected for bleeding. Sternum was closed with wires. Fascia was closed. Subcutaneous tissue was closed. Skin was closed. Dermabond was placed. The needle and sponge counts reported correct. The patient was taken to ICU in stable condition. TRANSINT:[id number] Voice Confirmation ID: [id number] DOCUMENT ID: [id number] DARIAN BRIGHT MD at 1016 CC: SOFI AGUAYO DO and HE PARKS [id number] DICTATION DATE: 07/20/19 1304 GREENHOUSE OR NURSERY TRANSPLANTER: 07/20/192006 ADM IN [facility] [address] [place] [id number]
--- NOTE | 2019-07-21 14:34 | NUR ---
1300- DR DEANGELO SMITHD CT, ART LINE R RADIAL. PT OOB TO CHAIR FOR MEALS.
--- NOTE | 2019-07-21 19:35 | NUR ---
REPORT REC'D AND CARE ASSUMED, PT REC'S ON O2 @ 2LITERS VIA NC, AWAKE, ALERT, ORIENTED X 4, MIDSTERNAL DRSG CDI, RIJ CVL DRSG CDI, SALINE LOCKED, SUBSTERNAL DRSG TO PREVIOUS CT SITES CDI, LEFT SUBSTERNAL ELIZABETH DRAIN TO BULB SUCTION WITH SANGUINOUS DRAINAGE PRESENT, RIGHT LEG WITH BRUISING NOTED, RIGHT LEG HARVEST SITES, OPEN TO AIR AND WELL APPROXIMATED, NO DRAINAGE NOTED, BILAT TEDS AND SCDS INTACT AND ON, BED IN LOW POSITION, PT DENIES NEEDS AT THIS TIME, CALL LIGHT IN REACH.
--- NOTE | 2019-07-21 20:50 | NUR ---
EVENING MEDS GIVEN ORDERED.
--- NOTE | 2019-07-21 21:15 | NUR ---
DAUGHTER AT VISITING WITH PT.
--- NOTE | 2019-07-21 23:15 | NUR ---
REASSESSMENT COMPLETED, BP DECREASED TO 88/51, AWAKENED PT AND BP RECHECKED 98/51, PT DENIES PAIN AT THIS TIME, RESP EVEN AND UNLABORED, VSS.
[2019-07-22] VITALS (41 sets, daily range): BP systolic 78–160; BP diastolic 38–80
--- NOTE | 2019-07-22 01:15 | NUR ---
PT AWAKE MOANING IN PAIN, RATING PAIN "7" ON 0-10 PAIN SCALE, PERCOCET 5 GIVEN PO AT THIS TIME, PT DENIES FURTHER NEEDS, WILL CONT TO MONITOR CLOSLEY FOR CHANGES.
--- NOTE | 2019-07-22 03:00 | NUR ---
REASSESSMENT COMPLETED, NO CHANGES FROM PREVIOUS ASSESSMENT, PT RESTING EYES CLOSED, RESP EVEN AND UNLABORED, BP 92/75, BP DROPS AT TIMES TO MID 80'S BUT COMES BACK UP WHEN AWAKENING PT.
--- NOTE | 2019-07-22 04:49 | NUR ---
RADIOLOGY @ BS FOR AM CXR
--- NOTE | 2019-07-22 05:15 | NUR ---
PT COMPLAINS OF TAILBONE AND CHEST HURTING "BAD", RATING PAIN "10" ON 0-10 PAIN SCALE, PERCOCET 10 GIVEN PO AT THIS TIME, PT DENIES FURTHER NEEDS.
--- NOTE | 2019-07-22 06:00 | NUR ---
PT ASSISTED UP CHAIR, BP 101/59, FOOT ELEVATED AND EXTRA PILLOW PROVIDED FOR SUPPORT, BEDSIDE TABLE AND CALL LIGHT IN REACH.
--- NOTE | 2019-07-22 06:50 | NUR ---
BP 80'S AT THIS TIME, PT RECLINED BACK IN CHAIR, BP 85/53, WILL MONITOR CLOSELY FOR CHANGES.
--- NOTE | 2019-07-22 07:05 | NUR ---
DR. BRIGHT NOTIFIED OF BP, NEW ORDERS REC'D TO HOLD COREG, PLAVIX, LISINOPRIL, AND AMIODARONE, BEGIN A 250CC NS BOLUS OVER 1 HOUR, AND START A NEOSYNEPHRINE GTT TO KEEP BP GREATER THAN 100.
--- NOTE | 2019-07-22 07:57 | NUR ---
BP 82/43, MAP 53. PT BACK TO BED. NS BOLUS STARTED AND ILANA STARTED ORDERED AFTER REPORTING TO DR BRIGHT.
[2019-07-22 08:03] LABS: ALBUMIN 2.6 g/dL (3.4-5.0); ANION GAP 8.4 mmol/L (8-16); BILIRUBIN - TOTAL 1.24 mg/dL (0.2-1.3); CALCIUM 7.8 mg/dL (8.5-10.1); CARBON DIOXIDE 28.7 mmol/L (21.0-32.0); CREATININE - SERUM 1.3 mg/dL (0.6-1.3); MAGNESIUM - SERUM 1.5 mg/dL (1.8-2.4); PHOSPHOROUS 2.2 mg/dL (2.5-4.9); POTASSIUM - SERUM 4.1 mmol/L (3.5-5.1)
[2019-07-22 08:05] LABS: BASOPHILS 0.2 % (0-2); EOSINOPHILS 1.4 % (0-7); IMMATURE GRANULOCYTES 0.3 % (0-5); LYMPHOCYTES 9.1 % (15-50); MCH 30.3 pg (26.0-34.0); MCHC 34.8 g/dL (31.0-37.0); MCV 87.1 fL (80.0-100.0); MEAN PLATELET VOLUME 10.2 fL (7.4-10.4); MONOCYTES 10.3 % (2-11); NEUTROPHILS 78.7 % (40-80); PLATELET COUNT 192 10x3/uL (130-400); RBC 2.64 10x6/uL (4.20-6.10); RDW 17.3 % (11.5-14.5); WBC 12.4 10x3/uL (4.8-10.8)
[2019-07-22 09:07] LABS: BASOPHILS 0.2 % (0-2); EOSINOPHILS 0.9 % (0-7); HEMATOCRIT 22.7 % (42.0-54.0); HEMOGLOBIN 7.8 g/dL (13.5-17.5); IMMATURE GRANULOCYTES 0.4 % (0-5); LYMPHOCYTES 8.5 % (15-50); MCH 29.9 pg (26.0-34.0); MCHC 34.4 g/dL (31.0-37.0); MEAN PLATELET VOLUME 9.9 fL (7.4-10.4); MONOCYTES 8.6 % (2-11); NEUTROPHILS 81.4 % (40-80); PLATELET COUNT 195 10x3/uL (130-400); RBC 2.61 10x6/uL (4.20-6.10); RDW 17.1 % (11.5-14.5); WBC 14.2 10x3/uL (4.8-10.8)
[2019-07-22 09:12] LABS: ANION GAP 11.9 mmol/L (8-16); CALCIUM 7.6 mg/dL (8.5-10.1); CARBON DIOXIDE 26.1 mmol/L (21.0-32.0); CREATININE - SERUM 1.3 mg/dL (0.6-1.3)
--- NOTE | 2019-07-22 09:14 | NUR ---
REPORTING TO DR DEANGELO Parra/Darius CLEMENS AND RICKIE NGUYEN.
--- NOTE | 2019-07-22 17:03 | NUR ---
UPRBC'S BEGAN. CACL STARTED,STAT ECHO ORDERED AND REPETE LABS REPORTED TO DR BRIGHT. REC'D ORDERS. ILANA TITRATING.
--- NOTE | 2019-07-22 17:09 | NUR ---
1130- 2UPRBC'S GIVEN. ILANA TITRATING TO OFF. REPORTED TO DR BRIGHT. DOBUTAMINE DECREASED TO SET RATE 3MCG/KG/MIN.
--- NOTE | 2019-07-22 19:00 | NUR ---
BEDSIDE REPORT AND SHIFT ASSESSMENT COMPLETE. PT SITTING UP IN BED, ALERT AND ORIENTED. VSS, NO SIGNS OF ACUTE DISTRESS NOTED. R IJ CVL PATENT, DRESSING CDI, SEE IV FLOWSHEET. PT DENIES ANY NEEDS AT THIS TIME. CALL LIGHT IN REACH, WILL CONTINUE TO MONITOR.
--- NOTE | 2019-07-22 21:00 | NUR ---
PT STANDING BY SIDE OF BED TO USE URINAL, NO ASSISTANCE NEEDED. PT DENIES DIZZINESS OR WEAKNESS. MEDS GIVEN PER MAR, TOLERATED BY PT. DENIES ANY OTHER NEEDS AT THIS TIME. CALL LIGHT IN REACH.
--- NOTE | 2019-07-22 23:00 | NUR ---
REASSESSMENT COMPLETE, SEE FLOWSHEET. VSS, NO SIGNS OF ACUTE DISTRESS NOTED. PT DENIES ANY NEEDS AT THIS TIME. WILL CONTINUE TO MONITOR.
[2019-07-23] VITALS (22 sets, daily range): BP systolic 93–127; BP diastolic 40–76; Ht 177.8 cm; Wt 86.4 kg
--- NOTE | 2019-07-23 01:00 | NUR ---
PT SLEEPING. VSS, NO SIGNS OF ACUTE DISTRESS NOTED. CALL LIGHT IN REACH, BED IN LOWEST POSITION. WILL MONITOR.
--- NOTE | 2019-07-23 02:15 | NUR ---
C/O PAIN IN L CHEST AND ABD, PRN MEDS GIVEN PER SEP.
--- NOTE | 2019-07-23 03:00 | NUR ---
REASSESSMENT COMPLETE, SEE FLOWSHEET. VSS, NO DISTRESS NOTED. PT USING IS AND PULLING 2000. DENIES ANY NEEDS.
--- NOTE | 2019-07-23 06:00 | NUR ---
CHG BATH COMPLETE. MIDSTERNAL DRESSING CHANGE COMPLETE. PT AMBULATED TO CHAIR WITH MIN ASSISTANCE, CALL LIGHT IN REACH.
[2019-07-23 06:29] LABS: BASOPHILS 0.1 % (0-2); EOSINOPHILS 1.7 % (0-7); IMMATURE GRANULOCYTES 0.2 % (0-5); LYMPHOCYTES 10.9 % (15-50); MCH 29.5 pg (26.0-34.0); MCHC 34.1 g/dL (31.0-37.0); MCV 86.4 fL (80.0-100.0); MEAN PLATELET VOLUME 9.8 fL (7.4-10.4); MONOCYTES 9.2 % (2-11); NEUTROPHILS 77.9 % (40-80); PLATELET COUNT 192 10x3/uL (130-400); RDW 16.6 % (11.5-14.5)
[2019-07-23 06:32] LABS: HEMATOCRIT 28.7 % (42.0-54.0); HEMOGLOBIN 9.8 g/dL (13.5-17.5); RBC 3.32 10x6/uL (4.20-6.10); WBC 8.9 10x3/uL (4.8-10.8)
[2019-07-23 06:45] LABS: ALBUMIN 2.5 g/dL (3.4-5.0); ANION GAP 9.8 mmol/L (8-16); BILIRUBIN - TOTAL 1.22 mg/dL (0.2-1.3); CALCIUM 8.4 mg/dL (8.5-10.1); CARBON DIOXIDE 29.9 mmol/L (21.0-32.0); CREATININE - SERUM 1.2 mg/dL (0.6-1.3); MAGNESIUM - SERUM 1.4 mg/dL (1.8-2.4); PHOSPHOROUS 1.9 mg/dL (2.5-4.9); POTASSIUM - SERUM 3.7 mmol/L (3.5-5.1); PROTEIN - SERUM 6.5 g/dL (6.4-8.2)
--- NOTE | 2019-07-23 07:45 | NUR ---
DR. BRIGHT AT BEDSIDE. DOBUTAMINE DECREASED TO 2MCG/KG/MIN SET RATE PER DR. BRIGHT. LEAVE AT THIS RATE THE REST OF TODAY.
--- NOTE | 2019-07-23 09:35 | NUR ---
PT BACK IN BED. ELIZABETH DRAIN HAS BEEN TAKEN OUT BY DR. BRIGHT'S NURSES. AM MEDS GIVEN. WILL CONTINUE TO MONITOR.
--- NOTE | 2019-07-23 11:00 | NUR ---
RE-ASSESSMENT COMPLETED. NO ACUTE CHANGES FROM PREVIOUS ASSESSMENT. IN BED. WILL CONTINUE TO MONITOR.
--- NOTE | 2019-07-23 12:18 | EC ---
PATIENT:DEBBIE GAYTAN DATE OF SERVICE: 07/20/19 SEX: M MEDICAL RECORD: [id number] DATE OF : 65 LOCATION:[place] [address] AGE OF PATIENT: 53 ADMISSION DATE: 07/20/19 REFERRING PHYSICIAN: INTERPRETING PHYSICIAN: JOSE DE JESUS TYLER MD ECHOCARDIOGRAM REPORT ECHO CHARGES 5 ECHO LIMITED Date: 07/22/19 CLINICAL DIAGNOSIS: POST CABG, BP LOW, ASSESS EF ECHOCARDIOGRAPHIC MEASUREMENTS (adult normal given) AC root (d.<3.7cm) 0 cm LV Septum d (<1.2 cm> 0 cm Valve Excursion 0 cm LV Septum (systole) 0 cm Left Atria (s.<4.0cm> 0 cm LVPW d(<1.2cm) cm RV (d.<2.3cm) 0 cm LVPW (sytole) 0 cm LV diastole(<5.6CM) 0 cm MV E-F(>70mm/sec) 0 cm LV systole 0 cm LVOT Diameter 00 cm MV exc.(>10mm) 0 cm Est.ejection fraction (50-75%) % DOPPLER: LVIT cm/sec A 0 cm/sec E 0 cm/sec LA 0 cm/sec RVSP 33.5 mmHg LVOT 0 cm/sec AOP1/2T m/s Asc. Ao cm/sec RVOT 0 cm/sec RA 0 cm/sec PA 0 cm/sec AV Gradient Peak 0 mmHg AV Mean 0 mmHg AV Area 0 cm MV Gradient Peak 0 mmHg MV Mean 0 mmHg MV Area 0 cm COMMENTS: Senior Report Developer: Vonda [facility] Disposal Worker: 3 Dr. King TAPE# PACS Pericardial Effusion Y DATE OF SERVICE: Technically limited study includes 2D, color flow and to assess LV function and pericardial effusion postop. Grossly LVH appears present. LV internal dimensions are normal. Mild septal hypokinesis consider recent postop CABG state. Overall, function is well preserved better at 50%. Aortic valve is tricuspid. No evidence of stenosis by Doppler interrogation. ECHOCARDIOGRAM REPORT [id number] DEBBIE GAYTAN Left atrium appears normal. Mitral valve has good valve excursion, no more than mild TR. Right sided chambers are grossly normal. Trace TR. No significant pericardial effusion is noted. TRANSINT:[id number] Voice Confirmation ID: [id number] DOCUMENT ID: [id number] JOSE DE JESUS TYLER MD at 1218 CC: [id number] DICTATION DATE: 07/22/19 1131 PHLEBOTOMIST SUPERVISOR/INSTRUCTOR: 07/22/19 2214 ADM IN [facility] [address] [place] [address]
--- NOTE | 2019-07-23 12:18 | TEE ---
PATIENT:DEBBIE GAYTAN MEDICAL RECORD: [id number] LOCATION:[place] [address] AGE OF PATIENT: 53 ADMISSION DATE: 07/20/19 SEX: M REFERRING PHYSICIAN: INTERPRETING PHYSICIAN: JOSE DE JESUS TYLER MD TRANSESOPHAGEAL ECHOCARDIOGRAM Date: 07/20/19 LINO CHARGE Y INDICATIONS: CABG PREMEDICATIONS: PATIENT'S RESPONSE PROCEDURE DOPPLER MEASUREMENTS: LVIT LA 4.0 PA RA LVOT RVOT Asc. Ao AV Gradient Peak AV Mean AV Area MV Gradient Peak MV Mean MV Area INTERPRETATION: Doppler: 2-D: COLOR FLOW DOPPLER NORMAL SALINE STUDY: MISCELLANOUS: DIAGNOSIS: PLAN: Library Specialist:3 Dr. King Manager Sports: Vonda REESE COMMENTS: DATE OF SERVICE: 07/20/2019 PROCEDURE: Transesophageal intraoperative CABG. FINDINGS: Preop, normal LV wall motion, normal wall thickness, normal EF. Aortic valve is well visualized with good excursion. Left atrium appears normal with good excursion on the mitral valve. Right-sided chambers are grossly normal. Postop EF remains better than 50% with good valve function and excursion and no significant regurgitation. TRANSESOPHAGEAL ECHOCARDIOGRAM REPORT [id number] DEBBIE GAYTAN TRANSINT:[id number] Voice Confirmation ID: [id number] DOCUMENT ID: [id number] at 1218 CC: [id number] DICTATION DATE: 07/20/19 1319 GRANTS MANAGER: 07/21/19 0802 ADM IN [facility] [address] [place] [address]
--- NOTE | 2019-07-23 15:00 | NUR ---
RE-ASSESSMENT COMPLETED. RESTING COMFORTABLY. VSS. NO FEVER NOTED. WILL CONTINUE TO MONITOR.
--- NOTE | 2019-07-23 16:49 | NUR ---
RATES PAIN 7/10 AT INCISION SITE. PERCOCET GIVEN PER ORDERS. DOES NOT WANT DINNER TRAY. ATE A LATE LUNCH.
--- NOTE | 2019-07-23 19:00 | NUR ---
BEDSIDE REPORT AND SHIFT ASSESSMENT COMPLETE, SEE FLOWSHEET. VSS, NO SIGNS OF ACUTE DISTRESS NOTED. PT IN BED SLEEPING. RT AT BEDSIDE ADMIN BREATHING TX. MIDLINE CHEST DRESSING CDI. R IJ CVL PATENT, SEE IV FLOWSHEET. CALL LIGHT IN REACH, BED IN LOWEST POSITION. WILL CONTINUE TO MONITOR.
--- NOTE | 2019-07-23 21:00 | NUR ---
MEDS GIVEN PER MAR AND TOLERATED BY PT. DENIES ANY NEEDS AT THIS TIME, WILL CONTINUE TO MONITOR.
--- NOTE | 2019-07-23 23:00 | NUR ---
REASSESSMENT COMPLETE, SEE FLOWSHEET. VSS, NO SIGNS OF ACUTE DISTRESS NOTED. PT SITTING UP IN BED WATCHING TV, DENIES ANY NEEDS AT THIS TIME. WILL MONITOR.
[2019-07-24] VITALS (22 sets, daily range): BP systolic 92–133; BP diastolic 43–84
--- NOTE | 2019-07-24 01:00 | NUR ---
PRN PAIN MEDS GIVEN PER MAR. VSS, NO SIGNS OF ACUTE DISTRESS NOTED. PT RESTLESS, HOPING PAIN MEDS WILL RELIEVE PAIN AND HELP HIM REST. CALL LIGHT IN REACH, DENIES OTHER NEEDS. WILL MONITOR.
--- NOTE | 2019-07-24 03:00 | NUR ---
REASSESSMENT COMPLETE, SEE FLOWSHEET. VSS. PT SLEEPING.
--- NOTE | 2019-07-24 03:45 | NUR ---
PT RESTLESS, SWEATING, C/O INABILITY TO GET COMFORTABLE. T 98.5, NO SIGNS OF FEVER NOTED. REPOSITIONING SELF IN BED.
[2019-07-24 06:03] LABS: HEMATOCRIT 25.9 % (42.0-54.0); HEMOGLOBIN 8.8 g/dL (13.5-17.5); MCH 29.7 pg (26.0-34.0); MCV 87.5 fL (80.0-100.0); MEAN PLATELET VOLUME 9.5 fL (7.4-10.4); RBC 2.96 10x6/uL (4.20-6.10); RDW 16.5 % (11.5-14.5); WBC 7.1 10x3/uL (4.8-10.8)
[2019-07-24 06:24] LABS: ALBUMIN 2.3 g/dL (3.4-5.0); ALKALINE PHOSPHATASE 88 U/L (46-116); ALT (SGPT) 24 U/L (10-68); CALC OSMOLALITY 272 mosm/kg (275-300); CALCIUM 8.1 mg/dL (8.5-10.1); CARBON DIOXIDE 31.1 mmol/L (21.0-32.0); CHLORIDE - SERUM 100 mmol/L (98-107); MAGNESIUM - SERUM 1.5 mg/dL (1.8-2.4); PHOSPHOROUS 2.7 mg/dL (2.5-4.9); POTASSIUM - SERUM 3.8 mmol/L (3.5-5.1); PROTEIN - SERUM 6.3 g/dL (6.4-8.2); SODIUM 136 mmol/L (136-145); UREA NITROGEN 22 mg/dL (7-18); eGFR NON AFRICAN AMERICAN 83 mL/min (90-120)
[2019-07-24 06:25] LABS: GLUCOSE 68 mg/dL (74-106)
--- NOTE | 2019-07-24 06:25 | NUR ---
ASSISTED PT TO BEDSIDE CHAIR. VSS, NO DISTRESS NOTED.
--- NOTE | 2019-07-24 07:00 | NUR ---
REPORT RECIEVED FROM THE OFF GOING RN. SEE ASSESSMENT IN THE PTS FLOW SHEET. PT SITTING OOB IN HIS BEDSIDE CHAIR. VSS. RIGHT IJ CVL NOTED. DOBUTAMINE INFUSING AT A SET RATE OF 2MCG/KG/MIN PER DR BRIGHT. MIDSTERNAL AND SUBSTERNAL DRESSING C/D/I. RLE INCISIONS OLIVIA AND WELL APPROXIMATED. PT DENIES PAIN AT THIS TIME. INSTRUCTED THE PT TO USE HIS IS 10X'S/H. PT PULLS ABOUT 2000 ON HIS IS. CALL LIGHT IN REACH. WILL CONT POC.
--- NOTE | 2019-07-24 08:26 | NUR ---
DECREASE DOBUTAMINE TO 1MCG/KG/MIN AND THEN TURN OFF AT NOON.
--- NOTE | 2019-07-24 08:27 | NUR ---
ONCE DOBUTAMINE OFF, START PIV AD DC IJ CVL PER DR BRIGHT.
--- NOTE | 2019-07-24 09:06 | NUR ---
PHYSICAL THEARPY AMBULATED WITH THE PT 500 ON RA. PHYSICAL THEARPY STATED HE STAYED ABOVE 90%SPO2 THE WHOLE TIME. PT TOLERATED WELL. WILL CONT POC.
--- NOTE | 2019-07-24 09:42 | NUR ---
DR NIÑO AT THE PTS BEDSIDE.
--- NOTE | 2019-07-24 11:00 | NUR ---
REASSESSMENT COMPLETED SEE FLOW SHEET. VSS. PT DENIES PAIN. CALL LIGHT IN REACH. WILL CONT POC.
--- NOTE | 2019-07-24 12:00 | NUR ---
DOBUTAMINE TURNED OFF PER DR BRIGHT. PT VSS. WILL CONT POC.
--- NOTE | 2019-07-24 12:30 | NUR ---
PT SELF AMBULATING IN HIS BEDROOM. PT WENT TO THE BATHROOM AND GAVE HIMSELF A BATH. LINENS PROVIDED FOR THE PT. CALL LIGHT IN REACH. WILL CONT POC.
--- NOTE | 2019-07-24 15:00 | NUR ---
PT REASSESSMENT COMPLETED. SEE FLOW SHEET. CALL LIGHT IN REACH. WILL CONT POC.
--- NOTE | 2019-07-24 23:00 | NUR ---
PT IS AWAKE AND ALERT. GIVEN ICE CHIPS AND ICE WATER PER REQUEST. PT IS RESTLESS.
[2019-07-25] VITALS (21 sets, daily range): BP systolic 98–150; BP diastolic 30–79
--- NOTE | 2019-07-25 03:30 | NUR ---
PT IS SLEEPING. AWAKENS EASILY AND GOES BACK TO SLEEP. DENIES NEEDS
--- NOTE | 2019-07-25 07:00 | NUR ---
REPORT RECIEVED FROM THE OFF GOING RN. SEE ASSESSMENT IN THE PTS FLOW SHEET. WAS NOTIFIED FROM THE OFF GOING RN THAT THE PT DID NOT SLEEP FOR LONG LAST SHIFT. PT RESTING IN HIS BED WITH HIS EYES CLOSED SNORING WITH NO S/SX OF DISTRESS/DISCOMFORT NOTED. VSS. BREAKFAST TRAY SET ASIDE FOR THE PT. DRESSING TO SUBSTERNAL AND MIDSTERNAL C/D/I. CALL LIGHT IN REACH. WILL CONT POC.
[2019-07-25 07:14] LABS: HEMATOCRIT 24.9 % (42.0-54.0); HEMOGLOBIN 8.6 g/dL (13.5-17.5); MCH 30.1 pg (26.0-34.0); MCHC 34.5 g/dL (31.0-37.0); MCV 87.1 fL (80.0-100.0); MEAN PLATELET VOLUME 9.7 fL (7.4-10.4); RBC 2.86 10x6/uL (4.20-6.10); RDW 16.5 % (11.5-14.5)
[2019-07-25 07:41] LABS: ALBUMIN 2.4 g/dL (3.4-5.0); ANION GAP 10.2 mmol/L (8-16); BILIRUBIN - TOTAL 0.58 mg/dL (0.2-1.3); CALCIUM 8.2 mg/dL (8.5-10.1); CARBON DIOXIDE 31.3 mmol/L (21.0-32.0); CREATININE - SERUM 1.2 mg/dL (0.6-1.3); MAGNESIUM - SERUM 1.5 mg/dL (1.8-2.4); POTASSIUM - SERUM 3.5 mmol/L (3.5-5.1); PROTEIN - SERUM 6.5 g/dL (6.4-8.2)
--- NOTE | 2019-07-25 08:30 | NUR ---
PT ASSISTED OOB AND INTO HIS BEDSIDE CHAIR. BREAKFAST TRAY PROVIDED FOR THE PT. DENIES PAIN. CALL LIGHT IN REACH. WILL CONT OPC.
--- NOTE | 2019-07-25 10:00 | NUR ---
DR BRIGHT AT THE PTS BEDSIDE. NO NEW ORDERS AT THIS TIME.
--- NOTE | 2019-07-25 11:00 | NUR ---
REASSESSMENT COMPLETED. SEE FLOW SHEET.
--- NOTE | 2019-07-25 11:52 | NUR ---
Nutrition Follow-up: Pt reports good appetite/PO intake. Denies N/V/C/D. Diet: Diabetic Wt: 193# (07/25); 188.4# (07/23) Last BM: 07/24 Labs noted: Glu 57, Ca 8.2, Mg 1.5, Alb 2.4 Meds noted: MagOx, Humulin, Glucotrol, Senokot, Glucophage -May consider cardiac diabetic diet. -Provided information on heart-healthy and diabetic diets per pt request. -Monitor wt. -RD following.
--- NOTE | 2019-07-25 14:00 | NUR ---
PT UP AMBULATING UP AND DOWN THE HALLWAY WITH A NORMAL STEADY GAIT. PT BACK IN ROOM AND TOLERATED WELL. CALL LIGHT IN REACH. WILL CONT POC.
--- NOTE | 2019-07-25 16:24 | MORECARE ---
CASE MANAGEMENT DISCHARGE SUMMARY PATIENT: DEBBIE GAYTAN UNIT: [id number] ADM DATE: 07/20/19 AGE: 53 : 65 SEX: M ROOM/BED: [facility] AUTHOR: CHERELLE ALEXANDRA PHYSICIAN: REFERRING PHYSICIAN: JOSE BRIGHT MD DATE OF SERVICE: 07/25/19 Discharge Plan Patient Name: DEBBIE GAYTAN [facility] [facility] 1965 Planned Disposition: Home Anticipated Discharge Date: Discharge Date: Expected LOS: Initial Reviewer: [email or web address] Initial Review Date: 07/24/2019 Generated: 07/25/19 5:23 pm Patient Name: DEBBIE GAYTAN Page 51439 at 1624 All edits/amendments must be made on the electronic document DICTATION DATE: 07/25/191622 LABORER [employer]: LILIANA 07/25/191622 RPT#: [id number] DC DATE: STATUS: ADM IN [facility] [address] [place] [address] END OF REPORT
--- NOTE | 2019-07-25 16:32 | MORECARE ---
CASE MANAGEMENT DISCHARGE SUMMARY PATIENT: DEBBIE GAYTAN UNIT: [id number] ADM DATE: 07/20/19 AGE: 53 : 65 SEX: M ROOM/BED: D[facility] AUTHOR: IBRAHIMA,DOC PHYSICIAN: REFERRING PHYSICIAN: JOSE BRIGHT MD DATE OF SERVICE: 07/25/19 Discharge Plan Patient Name: DEBBIE GAYTAN Facility: [facility]:[place] : 1965 Planned Disposition: Home Anticipated Discharge Date: Discharge Date: Expected LOS: Initial Reviewer: [email or web address] Initial Review Date: 07/24/2019 Generated: 07/25/19 5:32 pm Comments DCP- Discharge Planning Updated by [email or web address]: Ban Menjivar on 07/25/19 3:[address] Patient Name: DEBBIE GAYTAN Admission Status: Urgent Accout number: [id number] Admission Date: 07-20-2019 : 1965 Admission Diagnosis: Attending: JOSE BRIGHT Current LOS: 5 Anticipated DC Date: Planned Disposition: Home Primary Insurance: [employer] Discharge Planning Comments: CM met with patient at bedside after explaining CM role and obtaining verbal consent. Patient lives at home with his daughter where he is independent with his care and plans to return there upon discharge. Patient feels this would be a safe discharge. CM discussed availability / needs of home health and medical equipment. Patient denies any discharge needs at this time. Patient states he will have his family drive him home upon discharge. CM will continue to follow and assist as needed with discharge planning / needs. Manager Clinical Informatics: Ban Menjivar DCPIA - Discharge Planning Initial Assessment Updated by [email or web address]: Ban Menjivar on 07/25/19 4:25 pm * Is the patient Alert and Oriented? Yes * How many steps to enter\exit or inside your home? RAMP * PCP FARO * Pharmacy [facility] * Preadmission Environment Home with Family * ADLs Independent * Equipment Power Chair or Electric Scooter * Other Equipment CANE * List name and contact numbers for known caregivers / representatives who currently or will assist patient after discharge: SAMIRA GAYTAN - DAUGHTER - [phone] * Verbal permission to speak to the caregivers and representatives has been obtained from the patient. Yes * Community resources currently utilized None * Additional services required to return to the preadmission environment? No * Can the patient safely return to the preadmission environment? Yes * Has this patient been hospitalized within the prior 30 days at any hospital? No Last DP export: 07/25/19 3:24 p Patient Name: DEBBIE GAYTAN Page [id number] at 1632 All edits/amendments must be made on the electronic document DICTATION DATE: 07/25/19 163 CIRCUIT JUDGE: LILIANA 07/25/19 1632 RPT#: [id number] DC DATE: STATUS: ADM IN [facility] [address] [place] [address] END OF REPORT
--- NOTE | 2019-07-25 17:00 | NUR ---
PT ATE HIS DINNER AND THEN STARTED TALKING ON HIS PHONE AND WALKING AROUND IN HIS ROOM. NO S/SX OF DISTRESS/DISCOMFORT NOTED. PT APPEARS IN A PLEASANT MOOD. NSR ON THE PORTABLE MONITOR. WILL CONT POC.
--- NOTE | 2019-07-25 19:00 | NUR ---
BEDSIDE REPORT AND SHIFT ASSESSMENT COMPLETE, SEE FLOWSHEET. VSS, NO SIGNS OF DISTRESS NOTED. PT RESTING QUIETLY IN BED, DENIES ANY NEEDS AT THIS TIME. MIDSTERNAL INCISION DRESSING CDI, SUBSTERNAL INCISION DRESSING CDI. CALL LIGHT IN REACH, WILL MONITOR.
--- NOTE | 2019-07-25 21:15 | NUR ---
C/O INDIGESTION AND BLOATING IN ABD, PRN MYLANDA GIVEN PER MAR. DENIES ANY OTHER NEEDS AT THIS TIME.
--- NOTE | 2019-07-25 23:00 | NUR ---
REASSESSMENT COMPLETE. PT RESTING QUIETLY IN BED.
--- NOTE | 2019-07-25 23:45 | NUR ---
C/O PAIN 02/17, PRN MEDS GIVEN PER SEP. WILL MONITOR.
[2019-07-26] VITALS (24 sets, daily range): BP systolic 101–138; BP diastolic 51–78
--- NOTE | 2019-07-26 01:00 | NUR ---
O2 SAT DROPPED TO 80'S, PT SLEEPING WITH MOUTH OPEN AND SNORING. 2L O2 PLACED ON PT AND SAT INCREASED TO 98.
--- NOTE | 2019-07-26 03:00 | NUR ---
REASSESSMENT COMPLETE, SEE FLOWSHEET. PT AMBULATED TO RESTROOM WITH NO ASSISTANCE. DENIES ANY NEEDS AT THIS TIME. WILL MONITOR.
[2019-07-26 04:51] LABS: BASOPHILS 0.4 % (0-2); HEMATOCRIT 27.9 % (42.0-54.0); HEMOGLOBIN 9.4 g/dL (13.5-17.5); IMMATURE GRANULOCYTES 0.3 % (0-5); LYMPHOCYTES 18.7 % (15-50); MCH 29.7 pg (26.0-34.0); MCHC 33.7 g/dL (31.0-37.0); MEAN PLATELET VOLUME 10.1 fL (7.4-10.4); MONOCYTES 12.6 % (2-11); RBC 3.17 10x6/uL (4.20-6.10); RDW 16.5 % (11.5-14.5)
[2019-07-26 04:55] LABS: PLATELET COUNT 348 10x3/uL (130-400)
[2019-07-26 05:09] LABS: ALBUMIN 2.4 g/dL (3.4-5.0); ALKALINE PHOSPHATASE 100 U/L (46-116); ALT (SGPT) 38 U/L (10-68); BILIRUBIN - TOTAL 0.61 mg/dL (0.2-1.3); CALC OSMOLALITY 276 mosm/kg (275-300); CALCIUM 8.9 mg/dL (8.5-10.1); CARBON DIOXIDE 30.5 mmol/L (21.0-32.0); CHLORIDE - SERUM 98 mmol/L (98-107); GLUCOSE 77 mg/dL (74-106); MAGNESIUM - SERUM 1.4 mg/dL (1.8-2.4); POTASSIUM - SERUM 3.6 mmol/L (3.5-5.1); PROTEIN - SERUM 6.9 g/dL (6.4-8.2); SODIUM 138 mmol/L (136-145); UREA NITROGEN 18 mg/dL (7-18); eGFR NON AFRICAN AMERICAN 83 mL/min (90-120)
--- NOTE | 2019-07-26 06:00 | NUR ---
DR BRIGHT NOTIFIED OF PT CONVERTING TO A FLUTTER THEN BACK TO NSR.
--- NOTE | 2019-07-26 08:19 | NUR ---
UP IN CHAIR WATCHING TV AND EATING BREAKFAST AT THIS TIME. VSS. NO ACUTE DISTRESS NOTED. WILL CONTINUE PLAN OF CARE.
--- NOTE | 2019-07-26 10:33 | NUR ---
WALKING IN ROOM PERFORMING SELF CARE. VSS. NO ACUTE DISTRESS NOTED. CALL LIGHT IN REACH. WILL CONTINUE PLAN OF CARE.
--- NOTE | 2019-07-26 11:34 | NUR ---
1101: PT COMPLAINT OF INCISION DISCOMFORT WITH INDIGESTION. REQUESTS PRN PERCOCET AND MYLANTA. 1130: PT STATES HE FEELS MUCH BETTER AND THAT DISCOMFORT HAS BEEN RELIEVED. VSS. WILL CONTINUE PLAN OF CARE.
--- NOTE | 2019-07-26 12:28 | NUR ---
DR BRIGHT NOTIFIED OF LOW POTASSIUM AND MAGNESIUM LEVELS. ORDERS RECIEVED.
--- NOTE | 2019-07-26 13:02 | NUR ---
WALKED PT A LAP AROUND UNIT AT THIS TIME. PT WALKED WELL WITHOUT ANY BALANCE ISSUES. UP IN CHAIR VISITING WITH FRIEND. VSS. WILL CONTINUE PLAN OF CARE.
--- NOTE | 2019-07-26 15:30 | NUR ---
CHG BATH OFFERED, PT REFUSED STATING HE JUST HAD ONE THIS MORNING. VSS. WILL CONTINUE PLAN OF CARE.
--- NOTE | 2019-07-26 16:24 | NUR ---
UP IN CHAIR AWAKE AT THIS TIME. VSS. NO ACUTE DISTRESS NOTED. PT DENIES ANY NEEDS. WILL CONTINUE PLAN OF CARE.
--- NOTE | 2019-07-26 17:10 | NUR ---
PT COMPLAINT OF INCISIONAL DISCOMFORT 8 OUT OF 10. PRN PERCOCET ADMIN. VSS. SITTING UP IN CHAIR. WILL CONTINUE PLAN OF CARE.
--- NOTE | 2019-07-26 18:40 | NUR ---
LYING IN BED AT THIS TIME TALKING ON PHONE. DENIES ANY NEEDS. VSS. CALL LIGHT IN REACH. WILL CONTINUE PLAN OF CARE.
--- NOTE | 2019-07-26 19:30 | NUR ---
PT A/OX4, LUNGS CLEAR, LEFT PIV INTACT AND SL, URINAL IN REACH AT BEDSIDE, NO C/O @ THIS TIME
--- NOTE | 2019-07-26 21:15 | NUR ---
PT REMAINS AWAKE, VOICES NEEDS, MEDICATED FOR C/O PAIN, VITALS STABLE
--- NOTE | 2019-07-26 23:30 | NUR ---
PT AMBULATING IN HALLWAY, NO C/O, WILL CONT TO MONITOR
[2019-07-27] VITALS (10 sets, daily range): BP systolic 79–117; BP diastolic 47–62
--- NOTE | 2019-07-27 01:15 | NUR ---
PT SLEEPING WITH NO DISTRESS NOTED, VITALS STABLE
--- NOTE | 2019-07-27 03:30 | NUR ---
PT AWAKE, C/O PAIN, GIVEN PERCOCET 1 TAB PO, VITALS STABLE
--- NOTE | 2019-07-27 05:30 | NUR ---
PT GONE TO XRAY VIA WHEELCHAIR, NO CHANGES NOTED FROM INITIAL ASSESSMENT
[2019-07-27] MEDS ORDERED: LIPITOR20 MG PO (09:44)
[2019-07-27] MEDS ORDERED: COREG 3.1253.125 MG PO (09:45)
[2019-07-27] MEDS ORDERED: PERCOCET 5-3251 TAB PO (12:05)
--- NOTE | 2019-07-27 12:15 | MORECARE ---
CASE MANAGEMENT DISCHARGE SUMMARY PATIENT: DEBBIE GAYTAN UNIT: [id number] ADM DATE: 07/20/19 AGE: 53 : 65 SEX: M ROOM/BED: D[facility] AUTHOR: IBRAHIMA,DOC PHYSICIAN: REFERRING PHYSICIAN: JOSE BRIGHT MD DATE OF SERVICE: 07/27/19 Discharge Plan Patient Name: DEBBIE GAYTAN Facility: [facility]:[place] : 1965 Planned Disposition: Home Anticipated Discharge Date: Discharge Date: Expected LOS: Initial Reviewer: [email or web address] Initial Review Date: 07/24/2019 Generated: 07/27/19 1:15 pm Comments DCP- Discharge Planning Updated by [email or web address]: Zeina Matthews on 07/27/19 11:[address] Patient Name: DEBBIE GAYTAN Encounter No: [id number] : 1965 Primary Insurance: [employer] Anticipated DC Date: Planned Disposition: Home External Planned Provider: : DCP follow-up note: Patient and family in agreement with discharge plan. No changes to plan. CM explained and served DC IMM. Patient's family member here to drive him home. Denies any needs at this time. Case management will follow and assist as needed. Zeina Matthews DCP- Discharge Planning Updated by [email or web address]: Ban Menjivar on 07/25/19 3:[address] Patient Name: DEBBIE GAYTAN Admission Status: Urgent Accout number: [id number] Admission Date: 07-20-2019 : 1965 Admission Diagnosis: Attending: JOSE BRIGHT Current LOS: 5 Anticipated DC Date: Planned Disposition: Home Primary Insurance: N[employer]ASYSMCR Discharge Planning Comments: CM met with patient at bedside after explaining CM role and obtaining verbal consent. Patient lives at home with his daughter where he is independent with his care and plans to return there upon discharge. Patient feels this would be a safe discharge. CM discussed availability / needs of home health and medical equipment. Patient denies any discharge needs at this time. Patient states he will have his family drive him home upon discharge. CM will continue to follow and assist as needed with discharge planning / needs. Vice President Sales: Ban Menjivar DCPIA - Discharge Planning Initial Assessment Updated by [id number]: Ban Menjivar on 07/25/19 4:25 pm * Is the patient Alert and Oriented? Yes * How many steps to enter\exit or inside your home? RAMP * PCP FARO * Pharmacy [facility] * Preadmission Environment Home with Family * ADLs Independent * Equipment Power Chair or Electric Scooter * Other Equipment CANE * List name and contact numbers for known caregivers / representatives who currently or will assist patient after discharge: SAMIRA GAYTAN - DAUGHTER - [phone] * Verbal permission to speak to the caregivers and representatives has been obtained from the patient. Yes * Community resources currently utilized None * Additional services required to return to the preadmission environment? No * Can the patient safely return to the preadmission environment? Yes * Has this patient been hospitalized within the prior 30 days at any hospital? No Coverage Notice Reviewer: [id number] - Ban Menjivar Notice Issued Date-Time: 07/25/2019 17:00 Notice Type: IM Discharge Notice Notice Delivered To: Patient Relationship to Patient: Self Environmental Epidemiologist Name: Delivery Method: HAND - Hand Delivered Mary Days: Prior Verbal Notification: Recipient Understood Notice: Yes Recipient Signature: Yes Med Rec Note Co-signed by Attending: Coverage Notice Comment: Reviewer: [id number] - Zeina Matthews Notice Issued Date-Time: 07/27/2019 12:03 Notice Type: IM Discharge Notice Notice Delivered To: Patient Relationship to Patient: Self Environmental Epidemiologist Name: Delivery Method: HAND - Hand Delivered Mary Days: Prior Verbal Notification: Recipient Understood Notice: Yes Recipient Signature: Yes Med Rec Note Co-signed by Attending: Coverage Notice Comment: Last DP export: 07/25/19 3:32 p Patient Name: DEBBIE GAYTAN Page 04713 at 1215 All edits/amendments must be made on the electronic document DICTATION DATE: 07/27/19 1215 WIND PROJECT MANAGER: LILIANA 07/27/19 1215 RPT#: [id number] DC DATE: STATUS: ADM IN [facility] [address] [place] [address] END OF REPORT
[2019-07-27] MEDS ORDERED: K-DUR20 MEQ PO (12:31)
[2019-07-27] MEDS ORDERED: MAG-OX 400 MG400 MG PO (12:31)
--- NOTE | 2019-07-27 14:37 | NUR ---
1415: SALINE LOCK DC'D. 1420: POTASSIUM RESULT PHONED TO DR. BRIGHT'S NURSE. 1425: INSTRUCTED NOT TO TAKE POTASSIUM AND MAGNESIUM AND PREVIOUSLY INSTRUCTED. 1435: DISCHARGED HOME VIA PRIVATE VEHICLE.
--- NOTE | 2019-07-27 17:17 | MORECARE ---
CASE MANAGEMENT DISCHARGE SUMMARY PATIENT: DEBBIE GAYTAN UNIT: [id number] ADM DATE: 07/20/19 AGE: 53 : 65 SEX: M ROOM/BED: D[facility] AUTHOR: IBRAHIMA,DOC PHYSICIAN: REFERRING PHYSICIAN: JOSE BRIGHT MD DATE OF SERVICE: 07/27/19 Discharge Plan Patient Name: DEBBIE GAYTAN Facility: [facility]:[place] : 1965 Planned Disposition: Home Anticipated Discharge Date: Discharge Date: 07/27/2019 Expected LOS: Initial Reviewer: [email or web address] Initial Review Date: 07/24/2019 Generated: 07/27/19 6:17 pm Comments DCP- Discharge Planning Updated by [email or web address]: Zeina Matthews on 07/27/19 11:[address] Patient Name: DEBBIE GAYTAN Encounter No: [id number] : 1965 Primary Insurance: [employer]CR Anticipated DC Date: Planned Disposition: Home External Planned Provider: : DCP follow-up note: Patient and family in agreement with discharge plan. No changes to plan. CM explained and served DC IMM. Patient's family member here to drive him home. Denies any needs at this time. Case management will follow and assist as needed. Zeina Matthews DCP- Discharge Planning Updated by [email or web address]: Ban Menjivar on 07/25/19 3:[address] Patient Name: DEBBIE GAYTAN Admission Status: Urgent Accout number: [id number] Admission Date: 07-20-2019 : 1965 Admission Diagnosis: Attending: JOSE BRIGHT Current LOS: 5 Anticipated DC Date: Planned Disposition: Home Primary Insurance: N[employer]ASYSMCR Discharge Planning Comments: CM met with patient at bedside after explaining CM role and obtaining verbal consent. Patient lives at home with his daughter where he is independent with his care and plans to return there upon discharge. Patient feels this would be a safe discharge. CM discussed availability / needs of home health and medical equipment. Patient denies any discharge needs at this time. Patient states he will have his family drive him home upon discharge. CM will continue to follow and assist as needed with discharge planning / needs. Sales Advisor: Ban Menjivar DCPIA - Discharge Planning Initial Assessment Updated by [email or web address]: Ban Menjivar on 07/25/19 4:25 pm * Is the patient Alert and Oriented? Yes * How many steps to enter\exit or inside your home? RAMP * PCP FARO * Pharmacy [facility] * Preadmission Environment Home with Family * ADLs Independent * Equipment Power Chair or Electric Scooter * Other Equipment CANE * List name and contact numbers for known caregivers / representatives who currently or will assist patient after discharge: SAMIRA GAYTAN - DAUGHTER - [phone] * Verbal permission to speak to the caregivers and representatives has been obtained from the patient. Yes * Community resources currently utilized None * Additional services required to return to the preadmission environment? No * Can the patient safely return to the preadmission environment? Yes * Has this patient been hospitalized within the prior 30 days at any hospital? No Coverage Notice Reviewer: [id number] - Ban Menjivar Notice Issued Date-Time: 07/25/2019 17:00 Notice Type: IM Discharge Notice Notice Delivered To: Patient Relationship to Patient: Self Apprentice Lineman Third Step Name: Delivery Method: HAND - Hand Delivered Mary Days: Prior Verbal Notification: Recipient Understood Notice: Yes Recipient Signature: Yes Med Rec Note Co-signed by Attending: Coverage Notice Comment: Reviewer: [id number] - Zeina Matthews Notice Issued Date-Time: 07/27/2019 12:03 Notice Type: IM Discharge Notice Notice Delivered To: Patient Relationship to Patient: Self Apprentice Lineman Third Step Name: Delivery Method: HAND - Hand Delivered Mary Days: Prior Verbal Notification: Recipient Understood Notice: Yes Recipient Signature: Yes Med Rec Note Co-signed by Attending: Coverage Notice Comment: Last DP export: 07/27/19 11:15 a Patient Name: DEBBIE GAYTAN Page 49514 at 1717 All edits/amendments must be made on the electronic document DICTATION DATE: 07/27/191716 CASINO MANAGER: LILIANA 07/27/191716 RPT#: [id number] DC DATE:07/27/19 STATUS: DIS IN [facility] [address] [place] [address] END OF REPORT
== END 2019-07-27 14:35 | disposition home or self-care (01) | DRG 236 ==
LOC: D.SDCHOLD 07-20 05:00 → D.CVICU 07-20 05:00 → D.SDCHOLD 07-20 07:30 → D.CVICU 07-20 13:03
PROVIDERS: ADMIT Thoracic Surgery (Cardiothoracic Vascular Surgery); ATTEND Thoracic Surgery (Cardiothoracic Vascular Surgery)
PROC: 021009W Bypass Coronary Artery, One Artery from Aorta with Autologous Venous Tissue, Open Approach (ICD-10-PCS; 2019-07-20)
PROC: 06BP4ZZ Excision of Right Saphenous Vein, Percutaneous Endoscopic Approach (ICD-10-PCS; 2019-07-20)
PROC: 5A1221Z Performance of Cardiac Output, Continuous (ICD-10-PCS; 2019-07-20)
PROC: B24BZZ4 Ultrasonography of Heart with Aorta, Transesophageal (ICD-10-PCS; 2019-07-20)
PROC: 02100Z9 Bypass Coronary Artery, One Artery from Left Internal Mammary, Open Approach (ICD-10-PCS; principal; 2019-07-20 07:30)
DX: I25.10 Atherosclerotic heart disease of native coronary artery without angina pectoris (principal); D62 Acute posthemorrhagic anemia; I50.30 Unspecified diastolic (congestive) heart failure; I48.92 Unspecified atrial flutter; I11.0 Hypertensive heart disease with heart failure; M19.90 Unspecified osteoarthritis, unspecified site; J44.9 Chronic obstructive pulmonary disease, unspecified; E78.5 Hyperlipidemia, unspecified; E83.42 Hypomagnesemia; E83.39 Other disorders of phosphorus metabolism; I48.91 Unspecified atrial fibrillation; E11.40 Type 2 diabetes mellitus with diabetic neuropathy, unspecified

== ENCOUNTER 2019-10-05 20:26 | Emergency (ER) | payer OTHER ==
[~2019-10-05] VITALS: Ht 177.8 cm; Wt 82.7 kg
[~2019-10-05 20:26] MED LIST changes: +COREG 3.1253.125 MG PO; +CYCLOBENZAPRINE10 MG; +K-DUR20 MEQ PO; +LIPITOR20 MG PO; +MAG-OX 400 MG400 MG PO; +MULTI-DAY VITAM1 TAB PO; +PERCOCET 5-3251 TAB PO; +SINGULAIR10 MG
[2019-10-05 20:53] VITALS: Ht 177.8 cm; Wt 82.7 kg
[2019-10-05] MEDS ORDERED: LIPITOR10 MG PO (20:57)
[2019-10-05 21:31] LABS: BASOPHILS 0.3 % (0-2); EOSINOPHILS 2.5 % (0-7); HEMATOCRIT 41.7 % (42.0-54.0); HEMOGLOBIN 13.6 g/dL (13.5-17.5); IMMATURE GRANULOCYTES 0.2 % (0-5); LYMPHOCYTES 17.9 % (15-50); MCH 29.4 pg (26.0-34.0); MCHC 32.6 g/dL (31.0-37.0); MCV 90.3 fL (80.0-100.0); MEAN PLATELET VOLUME 11.4 fL (7.4-10.4); MONOCYTES 9.1 % (2-11); RBC 4.62 10x6/uL (4.20-6.10); RDW 15.8 % (11.5-14.5); WBC 12.6 10x3/uL (4.8-10.8)
[2019-10-05 21:39] LABS: CALC OSMOLALITY 268 mosm/kg (275-300); CALCIUM 9.8 mg/dL (8.5-10.1); CARBON DIOXIDE 27.7 mmol/L (21.0-32.0); CHLORIDE - SERUM 99 mmol/L (98-107); POTASSIUM - SERUM 4.2 mmol/L (3.5-5.1); SODIUM 135 mmol/L (136-145); UREA NITROGEN 16 mg/dL (7-18); eGFR NON AFRICAN AMERICAN 83 mL/min (90-120)
[2019-10-05 21:44] LABS: GLUCOSE 58 mg/dL (74-106)
[2019-10-05 21:53] LABS: PLATELET COUNT 303 10x3/uL (130-400)
[2019-10-05 22:03] LABS: ALBUMIN 4.3 g/dL (3.4-5.0); ALKALINE PHOSPHATASE 119 U/L (30-120); ALT (SGPT) 18 U/L (10-68); BILIRUBIN - TOTAL 0.67 mg/dL (0.2-1.3); C-REACTIVE PROTEIN 9.9 mg/dL (0.0-0.9); CKMB 0.2 U/L (0.0-3.6); CREATINE KINASE 82 UL (21-232); FERRITIN 87 ng/mL (3-244); PROTEIN - SERUM 9.1 g/dL (6.4-8.2)
[2019-10-05 22:04] LABS: TROPONIN-I < 0.017 ng/mL (0.000-0.060)
[2019-10-05 22:23] LABS: BILIRUBIN NEGATIVE (NEGATIVE); GLUCOSE NEGATIVE (NEGATIVE); KETONE NEGATIVE (NEGATIVE); NITRITE NEGATIVE (NEGATIVE); UROBILINOGEN NORMAL (NORMAL)
[2019-10-05] MEDS ORDERED: ALBUTEROL SULF8.5 GM INH (22:50)
[2019-10-05] MEDS ORDERED: PHENERGAN6.25 MG/5 PO (22:50)
[2019-10-05] MEDS ORDERED: ZPAK PO (22:50)
[2019-10-05] MEDS ORDERED: TESSALON PERLE100 MG PO (22:51)
[2019-10-05 23:12] VITALS: BP 161/80
== END 2019-10-05 23:13 | disposition home or self-care (01) ==
LOC: D.ER 20:26
PROVIDERS: Emergency Medicine
DX: R05 Cough (principal); J06.9 Acute upper respiratory infection, unspecified; Z20.828 Contact with and (suspected) exposure to other viral communicable diseases; Z86.73 Personal history of transient ischemic attack (TIA), and cerebral infarction without residual deficits; E11.40 Type 2 diabetes mellitus with diabetic neuropathy, unspecified; I25.2 Old myocardial infarction; I10 Essential (primary) hypertension; Z95.1 Presence of aortocoronary bypass graft; Z79.84 Long term (current) use of oral hypoglycemic drugs

== ENCOUNTER 2019-12-02 17:39 | Emergency (ER) | payer OTHER ==
[~2019-12-02 17:39] MED LIST changes: +ALBUTEROL SULF8.5 GM INH; +LIPITOR10 MG PO; +PHENERGAN6.25 MG/5 PO; +TESSALON PERLE100 MG PO; +ZPAK PO
[2019-12-02 17:49] VITALS: Ht 177.8 cm
[2019-12-02 18:52] LABS: BILIRUBIN NEGATIVE (NEGATIVE); GLUCOSE NEGATIVE (NEGATIVE); KETONE NEGATIVE (NEGATIVE); NITRITE NEGATIVE (NEGATIVE); UROBILINOGEN NORMAL (NORMAL)
[2019-12-02 18:57] LABS: BASOPHILS 0.1 % (0-2); EOSINOPHILS 0.1 % (0-7); HEMOGLOBIN 13.5 g/dL (13.5-17.5); IMMATURE GRANULOCYTES 0.2 % (0-5); LYMPHOCYTES 9.9 % (15-50); MCHC 34.6 g/dL (31.0-37.0); MCV 83.7 fL (80.0-100.0); MEAN PLATELET VOLUME 11.1 fL (7.4-10.4); MONOCYTES 10.8 % (2-11); NEUTROPHILS 78.9 % (40-80); PLATELET COUNT 256 10x3/uL (130-400); RBC 4.66 10x6/uL (4.20-6.10); RDW 17.4 % (11.5-14.5); WBC 9.6 10x3/uL (4.8-10.8)
[2019-12-02 19:09] LABS: CALC OSMOLALITY 263 mosm/kg (275-300); CALCIUM 9.2 mg/dL (8.5-10.1); CARBON DIOXIDE 20.7 mmol/L (21.0-32.0); CHLORIDE - SERUM 91 mmol/L (98-107); CREATININE - SERUM 1.4 mg/dL (0.6-1.3); POTASSIUM - SERUM 3.8 mmol/L (3.5-5.1); SODIUM 127 mmol/L (136-145); UREA NITROGEN 22 mg/dL (7-18); eGFR NON AFRICAN AMERICAN 56 mL/min (90-120)
[2019-12-02 19:12] LABS: GLUCOSE 212 mg/dL (74-106)
[2019-12-02 19:25] LABS: ALBUMIN 3.8 g/dL (3.4-5.0); ALKALINE PHOSPHATASE 96 U/L (30-120); ALT (SGPT) 25 U/L (10-68); BILIRUBIN - TOTAL 1.56 mg/dL (0.2-1.3); CKMB 0.6 U/L (0.0-3.6); CREATINE KINASE 259 UL (21-232); PRO BNP 371 pg/mL (0-125); PROTEIN - SERUM 7.9 g/dL (6.4-8.2); TROPONIN-I < 0.017 ng/mL (0.000-0.060)
[2019-12-02 21:08] VITALS: BP 109/69
== END 2019-12-02 21:08 | disposition home or self-care (01) ==
LOC: D.ER 17:39
PROVIDERS: Family Medicine
DX: J06.9 Acute upper respiratory infection, unspecified (principal); J44.9 Chronic obstructive pulmonary disease, unspecified; E11.40 Type 2 diabetes mellitus with diabetic neuropathy, unspecified; I11.0 Hypertensive heart disease with heart failure; I50.9 Heart failure, unspecified; I25.2 Old myocardial infarction; R06.02 Shortness of breath; R50.9 Fever, unspecified; Z79.84 Long term (current) use of oral hypoglycemic drugs

== ENCOUNTER 2019-12-04 12:18 | Inpatient (IN) | payer OTHER ==
[~2019-12-04] VITALS: Ht 177.8 cm; Wt 81.6 kg
--- NOTE | 2019-12-04 13:30 | NUR ---
PT TO ROOM FROM ADMISSIONS VIA WHEELCHAIR. RADIOLOGY IN ROOM TO TAKE FOR CT SCAN. COVID SWAB SENT TO LAB. IV STARTED AND LABS DRAWN.
[2019-12-04 14:08] LABS: BASOPHILS 0.1 % (0-2); EOSINOPHILS 0.1 % (0-7); HEMATOCRIT 36.3 % (42.0-54.0); IMMATURE GRANULOCYTES 0.3 % (0-5); LYMPHOCYTES 11.3 % (15-50); MCH 29.2 pg (26.0-34.0); MCHC 35.8 g/dL (31.0-37.0); MEAN PLATELET VOLUME 10.6 fL (7.4-10.4); MONOCYTES 11.6 % (2-11); NEUTROPHILS 76.6 % (40-80); PLATELET COUNT 215 10x3/uL (130-400); RBC 4.45 10x6/uL (4.20-6.10); RDW 17.5 % (11.5-14.5)
[2019-12-04 14:09] LABS: MCV 81.6 fL (80.0-100.0); WBC 6.9 10x3/uL (4.8-10.8)
[2019-12-04 14:15] LABS: ANION GAP 18.1 mmol/L (8-16); CALCIUM 8.9 mg/dL (8.5-10.1); CREATININE - SERUM 1.3 mg/dL (0.6-1.3); POTASSIUM - SERUM 3.1 mmol/L (3.5-5.1)
[2019-12-04 14:22] LABS: ALBUMIN 3.3 g/dL (3.4-5.0); BILIRUBIN - TOTAL 1.05 mg/dL (0.2-1.3); MAGNESIUM - SERUM 1.4 mg/dL (1.8-2.4); PROTEIN - SERUM 8.1 g/dL (6.4-8.2)
[2019-12-04] MEDS ORDERED: BAYER CHEWABLE81 MG PO (14:28)
[2019-12-04] MEDS ORDERED: HYDROCODON-ACE1 EA10 PO (14:29)
[2019-12-04 14:32] VITALS: BP 108/61
[2019-12-04 15:07] VITALS: BP 108/61; BMI 25.8
[2019-12-04 15:42] LABS: BILIRUBIN NEGATIVE (NEGATIVE); GLUCOSE NEGATIVE (NEGATIVE); KETONE MODERATE mg/dL (NEGATIVE); NITRITE NEGATIVE (NEGATIVE); UROBILINOGEN NORMAL (NORMAL)
[2019-12-04 15:43] LABS: BACTERIA FEW /hpf (NEGATIVE); RED CELLS - URINE 0-5 /hpf (0-5); WHITE CELLS - URINE OCC /hpf (NEGATIVE)
--- NOTE | 2019-12-04 19:25 | NUR ---
EVENING ROUNDS COMPLETE. PT SITTING UP IN BED. NO SIGNS OF DISTRESS. PT DENIES ANY PAIN OR NEEDS AT THIS TIME. CL IN REACH, BED IN LOWEST POSITION.
--- NOTE | 2019-12-04 19:54 | NUR ---
[facility] CALLED TO INFORM NURSING STAFF COVID-19 TEST IS NEGATIVE. PT IS GOING TO REMAIN IN CURRENT ROOM AT THIS TIME UNTIL A REGULAR BED BECOMES AVAILABLE.
[2019-12-04 20:00] VITALS: BP 109/51
[2019-12-05] VITALS: BP 139/83
[2019-12-05 06:31] LABS: BASOPHILS 0.1 % (0-2); EOSINOPHILS 0.4 % (0-7); HEMATOCRIT 31.6 % (42.0-54.0); HEMOGLOBIN 10.8 g/dL (13.5-17.5); IMMATURE GRANULOCYTES 0.3 % (0-5); MCH 28.4 pg (26.0-34.0); MCHC 34.2 g/dL (31.0-37.0); MCV 83.2 fL (80.0-100.0); NEUTROPHILS 74.2 % (40-80); PLATELET COUNT 224 10x3/uL (130-400); RDW 17.5 % (11.5-14.5); WBC 6.7 10x3/uL (4.8-10.8)
[2019-12-05 06:57] LABS: ALBUMIN 2.8 g/dL (3.4-5.0); BILIRUBIN - TOTAL 0.94 mg/dL (0.2-1.3); CALCIUM 8.2 mg/dL (8.5-10.1); CARBON DIOXIDE 24.5 mmol/L (21.0-32.0); CREATININE - SERUM 1.2 mg/dL (0.6-1.3); POTASSIUM - SERUM 3.5 mmol/L (3.5-5.1); PROTEIN - SERUM 7.1 g/dL (6.4-8.2)
--- NOTE | 2019-12-05 08:00 | NUR ---
PT RECEIVED LAYING IN BED, AWAKE AND ALERT. ASKING FOR TYLENOL, FEELS LIKE FEVER AGAIN.
[2019-12-05 09:53] VITALS: BP 118/71
[2019-12-05 10:19] VITALS: BMI 25.8
[2019-12-05 13:33] VITALS: BP 113/53
[2019-12-05 15:13] VITALS: Ht 177.8 cm; Wt 81.6 kg
[2019-12-05 16:25] LABS: CALC OSMOLALITY 252 mosm/kg (275-300); CALCIUM 7.8 mg/dL (8.5-10.1); CARBON DIOXIDE 21.4 mmol/L (21.0-32.0); CHLORIDE - SERUM 91 mmol/L (98-107); GLUCOSE 108 mg/dL (74-106); POTASSIUM - SERUM 3.5 mmol/L (3.5-5.1); SODIUM 125 mmol/L (136-145); UREA NITROGEN 12 mg/dL (7-18); eGFR NON AFRICAN AMERICAN 83 mL/min (90-120)
[2019-12-05 20:00] VITALS: BP 129/59
--- NOTE | 2019-12-05 20:40 | NUR ---
PATIENT TEMP 102.6 ORALLY. ADMINISTERED PRN TYLENOL. WILL REASSESS. ADMINISTERED HS MEDS, FSBS 75 NO COVERAGE NEEDED. NEW BAG OF NS HUNG AND RATE CHANGED TO 50ML/HR PER ORDERS.
[2019-12-06] VITALS: BP 115/75
[2019-12-06 04:00] VITALS: BP 134/75
[2019-12-06 09:14] VITALS: BP 107/59
[2019-12-06 09:15] LABS: BASOPHILS 0.1 % (0-2); EOSINOPHILS 0.1 % (0-7); HEMATOCRIT 30.7 % (42.0-54.0); HEMOGLOBIN 10.7 g/dL (13.5-17.5); IMMATURE GRANULOCYTES 0.3 % (0-5); LYMPHOCYTES 12.2 % (15-50); MCH 28.5 pg (26.0-34.0); MCHC 34.9 g/dL (31.0-37.0); MCV 81.6 fL (80.0-100.0); MEAN PLATELET VOLUME 9.9 fL (7.4-10.4); MONOCYTES 11.7 % (2-11); NEUTROPHILS 75.6 % (40-80); PLATELET COUNT 247 10x3/uL (130-400); RBC 3.76 10x6/uL (4.20-6.10); RDW 17.3 % (11.5-14.5); WBC 6.7 10x3/uL (4.8-10.8)
--- NOTE | 2019-12-06 10:17 | NUR ---
I have reviewed this patient and I concur with the Shift Assessment completed by the Licensed Practical Nurse today this shift.
[2019-12-06 10:19] LABS: CALC OSMOLALITY 262 mosm/kg (275-300); CALCIUM 7.8 mg/dL (8.5-10.1); CARBON DIOXIDE 23.3 mmol/L (21.0-32.0); CHLORIDE - SERUM 98 mmol/L (98-107); GLUCOSE 81 mg/dL (74-106); POTASSIUM - SERUM 3.1 mmol/L (3.5-5.1); SODIUM 132 mmol/L (136-145); UREA NITROGEN 10 mg/dL (7-18); eGFR NON AFRICAN AMERICAN 83 mL/min (90-120)
[2019-12-06 13:45] VITALS: BP 123/74
[2019-12-06 16:57] VITALS: BP 114/72
[2019-12-06 20:00] VITALS: BP 107/63
--- NOTE | 2019-12-06 20:00 | NUR ---
REPORT RECEIVED AND ROUNDING COMPLETE. PATIENT LAYING IN BED IN SUPINE POSITION WITH A RIGHT FOREARM PIV RUNNING NS AT THIS TIME. PATIENT IS A&O X4 AND SHOW NO S/SX OF DISTRESS. PATIENT STATES HE HAS NO NEEDS AT THIS TIME. CALL LIGHT WITHIN REACH AND BED IN LOWEST LOCKED POSITION.
[2019-12-07] VITALS: BP 130/70
[2019-12-07 04:00] VITALS: BP 143/77
[2019-12-07 05:19] LABS: % SATURATION 9 % (15-55); IRON 16 ug/dl (35-150); TOTAL IRON BIND CAPACITY 164 ug/dl (260-445); UNSAT IRON BIND CAPACITY 148 ug/dl (150-375)
[2019-12-07 05:50] LABS: MAGNESIUM - SERUM 1.4 mg/dL (1.8-2.4)
[2019-12-07 08:42] VITALS: BP 112/63
[2019-12-07 09:12] LABS: BASOPHILS 0.3 % (0-2); EOSINOPHILS 3.7 % (0-7); HEMATOCRIT 27.7 % (42.0-54.0); HEMOGLOBIN 9.5 g/dL (13.5-17.5); IMMATURE GRANULOCYTES 0.3 % (0-5); LYMPHOCYTES 16.1 % (15-50); MCH 28.3 pg (26.0-34.0); MCHC 34.3 g/dL (31.0-37.0); MCV 82.4 fL (80.0-100.0); MEAN PLATELET VOLUME 10.2 fL (7.4-10.4); MONOCYTES 14.5 % (2-11); NEUTROPHILS 65.1 % (40-80); PLATELET COUNT 273 10x3/uL (130-400); RBC 3.36 10x6/uL (4.20-6.10); RDW 17.3 % (11.5-14.5)
[2019-12-07 09:18] LABS: CALC OSMOLALITY 260 mosm/kg (275-300); CALCIUM 8.3 mg/dL (8.5-10.1); CARBON DIOXIDE 21.9 mmol/L (21.0-32.0); CHLORIDE - SERUM 98 mmol/L (98-107); GLUCOSE 103 mg/dL (74-106); SODIUM 130 mmol/L (136-145); UREA NITROGEN 12 mg/dL (7-18); eGFR NON AFRICAN AMERICAN 83 mL/min (90-120)
[2019-12-07 09:21] LABS: POTASSIUM - SERUM 3.1 mmol/L (3.5-5.1)
--- NOTE | 2019-12-07 10:40 | MORECARE ---
CASE MANAGEMENT DISCHARGE SUMMARY PATIENT: DEBBIE BRASHER UNIT: [id number] ADM DATE: 12/04/19 AGE: 53 : 65 SEX: M ROOM/BED: D.2101 AUTHOR: CHERELLE ALEXANDRA PHYSICIAN: REFERRING PHYSICIAN: SOFI AGUAYO DO DATE OF SERVICE: 12/07/19 Discharge Plan Patient Name: DEBBIE BRASHER [facility] [facility] 1965 Planned Disposition: Home Anticipated Discharge Date: Discharge Date: Expected LOS: Initial Reviewer: [email or web address] Initial Review Date: 12/07/2019 Generated: 12/07/19 11:40 am DCPIA - Discharge Planning Initial Assessment Updated by [email or web address]: Ginny Varghese on 12/07/19 10:39 am * Is the patient Alert and Oriented? Yes * How many steps to enter\exit or inside your home? Ramp/0 * PCP Dr. Aguayo * Pharmacy [facility] * Preadmission Environment Home with Family * ADLs Independent * Equipment Cane Glucometer Power Chair or Electric Scooter Walker Wheelchair * Other Equipment Electric wheelchair * List name and contact numbers for known caregivers / representatives who currently or will assist patient after discharge: Swetha Brasher - R - [phone] * Verbal permission to speak to the caregivers and representatives has been obtained from the patient. Yes * Community resources currently utilized None * Additional services required to return to the preadmission environment? No * Can the patient safely return to the preadmission environment? Yes * Has this patient been hospitalized within the prior 30 days at any hospital? No Patient Name: DEBBIE BRASHER Page 28830 at 1040 All edits/amendments must be made on the electronic document DICTATION DATE: 12/07/19 1040 CHEMISTRY FACULTY MEMBER: LILIANA 12/07/19 1040 RPT#: [id number] DC DATE: STATUS: ADM IN [facility] [address] [place] [address] END OF REPORT
--- NOTE | 2019-12-07 10:49 | MORECARE ---
CASE MANAGEMENT DISCHARGE SUMMARY PATIENT: DEBBIE BRASHER UNIT: [id number] ADM DATE: 12/04/19 AGE: 53 : 65 SEX: M ROOM/BED: D.2105 AUTHOR: IBRAHIMA,DOC PHYSICIAN: REFERRING PHYSICIAN: SOFI AGUAYO DO DATE OF SERVICE: 12/07/19 Discharge Plan Patient Name: DEBBIE BRASHER Facility: [facility]:[place] : 1965 Planned Disposition: Home Anticipated Discharge Date: Discharge Date: Expected LOS: Initial Reviewer: [email or web address] Initial Review Date: 12/07/2019 Generated: 12/07/19 11:49 am Comments DCP- Discharge Planning Updated by [email or web address]: Ginny Varghese on 12/07/19 9:[address] Patient Name: DEBBIE BRASHER Admission Status: Elective Accout number: [id number] Admission Date: 12-04-2019 : 1965 Admission Diagnosis:FEVER, UNSPECIFIED Attending: SOFI AGUAYO Current LOS: 3 Anticipated DC Date: Planned Disposition: Home Primary Insurance: [employer] Discharge Planning Comments: CM met with patient to complete initial dc planning assessment. CM educated patient on the CM role and verbal consent given by patient to complete assessment. Patient lives at home with his daughter and grand daughter. States plan is to return home and feels this is a safe discharge. States he drove himself to Dr. Aguayo's office and will drive himself home. States his vehicle is in the parking lot. States he is independent with all ADL's and IADL's. States he does not have any community resources or need any. I discussed availability of home health and DME needs and he denies need at this time. CM will continue to follow and assist with discharge planning/needs. Street address - [address] [place] [address] in [place] Real Estate Appraiser: Ginny Varghese DCPIA - Discharge Planning Initial Assessment Updated by [email or web address]: Ginny Varghese on 12/07/19 10:39 am * Is the patient Alert and Oriented? Yes * How many steps to enter\exit or inside your home? Ramp/0 * PCP Dr. Aguayo * Pharmacy [facility] [place] * Preadmission Environment Home with Family * ADLs Independent * Equipment Cane Glucometer Power Chair or Electric Scooter Walker Wheelchair * Other Equipment Electric wheelchair * List name and contact numbers for known caregivers / representatives who currently or will assist patient after discharge: Swetha Brasher - DTR - [phone] * Verbal permission to speak to the caregivers and representatives has been obtained from the patient. Yes * Community resources currently utilized None * Additional services required to return to the preadmission environment? No * Can the patient safely return to the preadmission environment? Yes * Has this patient been hospitalized within the prior 30 days at any hospital? No Last DP export: 12/07/19 9:40 a Patient Name: DEBBIE BRASHER Page [id number] at 1049 All edits/amendments must be made on the electronic document DICTATION DATE: 12/07/191048 STAB SETTER AND DRILLER: LILIANA 12/07/19 1049 RPT#: [id number] DC DATE: STATUS: ADM IN [facility] [address] [place] [address] END OF REPORT
--- NOTE | 2019-12-07 11:12 | NUR ---
Nutrition Follow-up: Pt reports feeling/eating better. Ate ~75% of breakfast this AM. Drank 3 Glucerna yesterday. Denies N/V. C/o diarrhea. Diet: Diabetic, Glucerna TID No new wt; last wt: 180# (12/04) Labs noted: Na 130, K+ 3.1, Ca 8.3 Meds noted: Glucotrol, Folate, Glucophage, Protonix, NS @ 50 -Encourage PO intake and honor food preferences within diet restrictions. -Monitor wt. -RD following.
[2019-12-07 13:21] VITALS: BP 107/60
[2019-12-07 17:31] VITALS: BP 112/53
--- NOTE | 2019-12-07 20:15 | NUR ---
RECEIVED BEDSIDE SHIFT REPORT. UP IN BED WITH EYES OPEN AND TV ON. REMAINS ON 100CC FLUID RESTRICTION. ALERT AND ORIENTED X4. UP AD SOUMYA. ON ROOM AIR. IV TO RT WRIST WITH VANCOMYCIN INFUSING. DENIES ANY NEEDS AT THIS TIME.
[2019-12-07 20:30] VITALS: BP 144/75
[2019-12-08 00:30] VITALS: BP 118/75
[2019-12-08 04:30] VITALS: BP 117/61
[2019-12-08 04:48] LABS: BASOPHILS 0.4 % (0-2); EOSINOPHILS 3.2 % (0-7); HEMATOCRIT 28.9 % (42.0-54.0); HEMOGLOBIN 9.9 g/dL (13.5-17.5); IMMATURE GRANULOCYTES 0.4 % (0-5); LYMPHOCYTES 19.2 % (15-50); MCH 28.4 pg (26.0-34.0); MCHC 34.3 g/dL (31.0-37.0); MEAN PLATELET VOLUME 10.7 fL (7.4-10.4); MONOCYTES 16.5 % (2-11); NEUTROPHILS 60.3 % (40-80); PLATELET COUNT 369 10x3/uL (130-400); RBC 3.48 10x6/uL (4.20-6.10); RDW 17.3 % (11.5-14.5); WBC 7.9 10x3/uL (4.8-10.8)
[2019-12-08 05:02] LABS: CALC OSMOLALITY 263 mosm/kg (275-300); CALCIUM 8.8 mg/dL (8.5-10.1); CARBON DIOXIDE 26.9 mmol/L (21.0-32.0); CHLORIDE - SERUM 101 mmol/L (98-107); CREATININE - SERUM 0.9 mg/dL (0.6-1.3); POTASSIUM - SERUM 3.6 mmol/L (3.5-5.1); SODIUM 134 mmol/L (136-145); UREA NITROGEN 11 mg/dL (7-18); VANCOMYCIN - TROUGH 21.7 ug/mL (10.0-20.0); eGFR NON AFRICAN AMERICAN > 90 mL/min (90-120)
[2019-12-08 05:04] LABS: GLUCOSE 46 mg/dL (74-106)
--- NOTE | 2019-12-08 05:26 | NUR ---
LAB CALLED WITH GLUCOSE OF 46. SNACKS GIVEN AND WILL RECHECK FSBS. ASYMPTOMATIC AT THIS TIME.
--- NOTE | 2019-12-08 07:30 | NUR ---
PT LAYING SUPINE. COFFEE RECIEVED PER REQUEST. ASSESSMENT COMPLETE. RR EVEN AND UNLABORED ON RA. DENIES FURTHER NEEDS OR PAIN AT THIS TIME. CALL LIGHT WITHIN REACH. BED IN LOWEST POSITION. WILL CONTINUE TO MONITOR.
[2019-12-08 10:14] VITALS: BP 133/64
[2019-12-08 11:09] LABS: ANA REFLEX - DIRECT Negative (Negative)
[2019-12-08 14:22] VITALS: BP 134/77
--- NOTE | 2019-12-08 18:50 | NUR ---
BEDSIDE REPORT RECEIVED, PT CARE ASSUMED. INTRODUCED SELF AND WROTE NAME ON BOARD. PT LYING IN BED, WATCHING TV, AAOX4. REQUESTING CUP OF ICE, PROVIDED. DENIES ANY PAIN OR OTHER NEEDS AT THIS TIME. BED IN LOWEST, SRX1, CALL LIGHT WITHIN REACH. WILL CTM.
[2019-12-08 20:00] VITALS: BP 148/82
[2019-12-09 00:30] VITALS: BP 120/70
[2019-12-09 04:30] VITALS: BP 123/75
[2019-12-09 05:24] LABS: HEMATOCRIT 29.8 % (42.0-54.0); HEMOGLOBIN 10.1 g/dL (13.5-17.5); LYMPHOCYTES 16.6 % (15-50); MCH 28.1 pg (26.0-34.0); MCHC 33.9 g/dL (31.0-37.0); MEAN PLATELET VOLUME 10.3 fL (7.4-10.4); NEUTROPHILS 70.9 % (40-80); PLATELET COUNT 353 10x3/uL (130-400); RBC 3.59 10x6/uL (4.20-6.10); WBC 7.4 10x3/uL (4.8-10.8)
[2019-12-09 05:34] LABS: CALC OSMOLALITY 265 mosm/kg (275-300); CALCIUM 9.3 mg/dL (8.5-10.1); CHLORIDE - SERUM 99 mmol/L (98-107); POTASSIUM - SERUM 4.1 mmol/L (3.5-5.1); SODIUM 134 mmol/L (136-145); UREA NITROGEN 13 mg/dL (7-18); eGFR NON AFRICAN AMERICAN 83 mL/min (90-120)
[2019-12-09 05:35] LABS: GLUCOSE 57 mg/dL (74-106)
[2019-12-09 08:22] VITALS: BP 121/60
[2019-12-09 12:17] VITALS: BP 132/69
[2019-12-09 15:45] VITALS: BP 139/77
--- NOTE | 2019-12-09 17:29 | NUR ---
PATIENT REQUESTED THE LAB RESULT FOR A VANCO TROUGH BECAUSE THE LAST ONE WAS TOO HIGH TO RECIEVE THE MEDICATION. CALLED THE LAB TO VERIFY THE PROTOCAL. PUT IN ORDER TO VERIFY THE VANCO TROUGH TO EDUCATE THE PATIENT. PHARMACY WAS UPSET THAT I ORDERED ANOTHER VANC TROUGH WITH ONLY ONE DOSE LEFT. REPORTED TO THE PHARMACIST THAT THE PATIENT WAS ASKING AND WAS WORRIED ABOUT THE RESULTS
[2019-12-09 20:30] VITALS: BP 115/52
--- NOTE | 2019-12-09 22:31 | NUR ---
RECEIVED REPORT FROM SUJATA DIEZ. ALERT AND ORIENTED X4. UP AD SOUMYA TO B/R. IV TO RT FA WITH NS INFUSING AT 10CC/HR. DENIES ANY NEEDS AT THIS TIME.
[2019-12-10 00:30] VITALS: BP 108/50
[2019-12-10 04:30] VITALS: BP 123/74
--- NOTE | 2019-12-10 08:27 | NUR ---
PT SITTING UP IN BED. RR EVEN AND UNLABORED ON ROOM AIR. LUNG SOUNDS CLEAR IN ALL LOBES. UPON ASSESSING IV SITE, IT IS RED, SWOLLEN, AND TENDER TO TOUCH. PT STATED IT HAD BEEN HURTING FOR A COUPLE OF DAYS BUT DID NOT WANT TO SAY ANYTHING BECAUSE HE DID NOT WANT ANOTHER IV AND WAS HOPING TO GO HOME SOON. ATTEMPTED TO FLUSH LINE, NOTED FACIAL GRIMACING AND PT STATED IT HURT WORSE. IV D/C WITH CATHETER TIP INTACT. AFTER REMOVING IV DRESSING, SITE HAD AN ODOR TO IT. WARM COMPRESS APPLIED. EXTREMITIY ELEVATED. PT STATES HE FEELS BETTER. IV RESITED TO LEFT FOREARM. DENIES NEEDS OR FURTHER PAIN AT THIS TIME. CALL LIGHT WITHIN REACH. BED IN LOWEST POSITION. WILL CONTINUE TO MONITOR.
[2019-12-10 09:14] LABS: BASOPHILS 0.2 % (0-2); EOSINOPHILS 3.5 % (0-7); HEMATOCRIT 30.4 % (42.0-54.0); HEMOGLOBIN 10.2 g/dL (13.5-17.5); IMMATURE GRANULOCYTES 1.1 % (0-5); LYMPHOCYTES 17.2 % (15-50); MCH 28.3 pg (26.0-34.0); MCHC 33.6 g/dL (31.0-37.0); MCV 84.4 fL (80.0-100.0); MEAN PLATELET VOLUME 10.1 fL (7.4-10.4); MONOCYTES 9.9 % (2-11); NEUTROPHILS 68.1 % (40-80); RDW 17.1 % (11.5-14.5)
[2019-12-10 09:23] LABS: ANION GAP 10.8 mmol/L (8-16); CALCIUM 9.5 mg/dL (8.5-10.1); CARBON DIOXIDE 27.5 mmol/L (21.0-32.0); CREATININE - SERUM 1.1 mg/dL (0.6-1.3); POTASSIUM - SERUM 4.3 mmol/L (3.5-5.1)
[2019-12-10 09:30] LABS: PLATELET COUNT 534 10x3/uL (130-400)
[2019-12-10 10:41] VITALS: BP 129/83
[2019-12-10] MEDS ORDERED: CLINDAMYCIN HC300 MG (11:32)
[2019-12-10] MEDS ORDERED: LEVAQUIN750 MG PO (11:38)
--- NOTE | 2019-12-10 12:10 | MORECARE ---
CASE MANAGEMENT DISCHARGE SUMMARY PATIENT: DEBBIE BRASHER UNIT: [id number] ADM DATE: 12/04/19 AGE: 53 : 65 SEX: M ROOM/BED: D.2100 AUTHOR: CHERELLE ALEXANDRA PHYSICIAN: REFERRING PHYSICIAN: SOFI AGUAYO DO DATE OF SERVICE: 12/10/19 Discharge Plan Patient Name: DEBBIE BRASHER Facility: [facility]:[place] : 1965 Planned Disposition: Home Anticipated Discharge Date: Discharge Date: Expected LOS: Initial Reviewer: [email or web address] Initial Review Date: 12/07/2019 Generated: 12/10/19 1:09 pm Comments DCP- Discharge Planning Updated by [email or web address]: Ginny Varghese on 12/10/19 11:[address] Patient Name: DEBBIE BRASHER Encounter No: [id number] : 1965 Primary Insurance: [employer] Anticipated DC Date: Planned Disposition: Home External Planned Provider: : DCP follow-up note: Patient in agreement with discharge plan. No changes to plan. IMM explained, signed, given, copy placed in MR. Case management will follow and assist as needed. Ginny Varghese DCP- Discharge Planning Updated by [email or web address]: Ginny Varghese on 12/07/19 9:[address] Patient Name: DEBBIE BRASHER Admission Status: Elective Accout number: [id number] Admission Date: 12-04-2019 : 1965 Admission Diagnosis:FEVER, UNSPECIFIED Attending: SOFI AGUAYO Current LOS: 3 Anticipated DC Date: Planned Disposition: Home Primary Insurance: [employer] Discharge Planning Comments: CM met with patient to complete initial dc planning assessment. CM educated patient on the CM role and verbal consent given by patient to complete assessment. Patient lives at home with his daughter and grand daughter. States plan is to return home and feels this is a safe discharge. States he drove himself to Dr. Aguayo's office and will drive himself home. States his vehicle is in the parking lot. States he is independent with all ADL's and IADL's. States he does not have any community resources or need any. I discussed availability of home health and DME needs and he denies need at this time. CM will continue to follow and assist with discharge planning/needs. Street address - [address] [place] [address] in [place] Non Destructive Testing Scientist: Ginny Varghese DCPIA - Discharge Planning Initial Assessment Updated by [email or web address]: Ginny Varghese on 12/07/19 10:39 am * Is the patient Alert and Oriented? Yes * How many steps to enter\exit or inside your home? Ramp/0 * PCP Dr. Aguayo * Pharmacy [facility] [place] * Preadmission Environment Home with Family * ADLs Independent * Equipment Cane Glucometer Power Chair or Electric Scooter Walker Wheelchair * Other Equipment Electric wheelchair * List name and contact numbers for known caregivers / representatives who currently or will assist patient after discharge: Swetha Brasher - DTR - [phone] * Verbal permission to speak to the caregivers and representatives has been obtained from the patient. Yes * Community resources currently utilized None * Additional services required to return to the preadmission environment? No * Can the patient safely return to the preadmission environment? Yes * Has this patient been hospitalized within the prior 30 days at any hospital? No Coverage Notice Reviewer: [id number] - Ginny Halima Notice Issued Date-Time: 12/10/2019 12:02 Notice Type: IM Discharge Notice Notice Delivered To: Patient Relationship to Patient: Self Area Operations Director Name: Delivery Method: HAND - Hand Delivered Mary Days: Prior Verbal Notification: Recipient Understood Notice: Yes Recipient Signature: Yes Med Rec Note Co-signed by Attending: Coverage Notice Comment: IMM explained, signed, given, copy placed in MR Last DP export: 12/07/19 9:49 a Patient Name: DEBBIE BRASHER Page [id number] at 1210 All edits/amendments must be made on the electronic document DICTATION DATE: 12/10/19 120 STRAND BUNCHER FINE WIRE: LILIANA 12/10/19 1209 RPT#: [id number] DC DATE: STATUS: ADM IN [address] [place] [address] END OF REPORT
--- NOTE | 2019-12-10 14:07 | NUR ---
D/C INSTRUCTIONS REVIEWED WITH PT. VERBALIZED UNDERSTANDING. IV D/C WITH CATHETER TIP INTACT. REFUSED WHEELCHAIR OUT. AMBULATED TO PERSONAL VEHICLE WITH NO NEED FOR ASSISTANCE AND WITH ALL BELONGINGS
--- NOTE | 2019-12-10 16:30 | MORECARE ---
CASE MANAGEMENT DISCHARGE SUMMARY PATIENT: DEBBIE BRASHER UNIT: [id number] ADM DATE: 12/04/19 AGE: 53 : 65 SEX: M ROOM/BED: D.2103 AUTHOR: IBRAHIMADOC PHYSICIAN: REFERRING PHYSICIAN: SOFI AGUAYO DO DATE OF SERVICE: 12/10/19 Discharge Plan Patient Name: DEBBIE BRASHER Facility: [facility]:[place] : 1965 Planned Disposition: Home Anticipated Discharge Date: Discharge Date: 12/10/2019 Expected LOS: 0 Initial Reviewer: [email or web address] Initial Review Date: 12/07/2019 Generated: 12/10/19 5:29 pm Comments DCP- Discharge Planning Updated by [email or web address]: Ginny Varghese on 12/10/19 11:[address] Patient Name: DEBBIE BRASHER Encounter No: [id number] : 1965 Primary Insurance: [employer] Anticipated DC Date: Planned Disposition: Home External Planned Provider: : DCP follow-up note: Patient in agreement with discharge plan. No changes to plan. IMM explained, signed, given, copy placed in MR. Case management will follow and assist as needed. Ginny Varghese DCP- Discharge Planning Updated by [email or web address]: Ginny Varghese on 12/07/19 9:[address] Patient Name: DEBBIE BRASHER Admission Status: Elective Accout number: [id number] Admission Date: 12-04-2019 : 1965 Admission Diagnosis:FEVER, UNSPECIFIED Attending: SOFI AGUAYO Current LOS: 3 Anticipated DC Date: Planned Disposition: Home Primary Insurance: [employer] Discharge Planning Comments: CM met with patient to complete initial dc planning assessment. CM educated patient on the CM role and verbal consent given by patient to complete assessment. Patient lives at home with his daughter and grand daughter. States plan is to return home and feels this is a safe discharge. States he drove himself to Dr. Aguayo's office and will drive himself home. States his vehicle is in the parking lot. States he is independent with all ADL's and IADL's. States he does not have any community resources or need any. I discussed availability of home health and DME needs and he denies need at this time. CM will continue to follow and assist with discharge planning/needs. Street address - [address] [place] [address] in [place] Wwe Wrestler: Ginny Varghese DCPIA - Discharge Planning Initial Assessment Updated by [email or web address]: Ginny Varghese on 12/07/19 10:39 am * Is the patient Alert and Oriented? Yes * How many steps to enter\exit or inside your home? Ramp/0 * PCP Dr. Aguayo * Pharmacy [facility] [place] * Preadmission Environment Home with Family * ADLs Independent * Equipment Cane Glucometer Power Chair or Electric Scooter Walker Wheelchair * Other Equipment Electric wheelchair * List name and contact numbers for known caregivers / representatives who currently or will assist patient after discharge: Swetha Brasher - DTR - [phone] * Verbal permission to speak to the caregivers and representatives has been obtained from the patient. Yes * Community resources currently utilized None * Additional services required to return to the preadmission environment? No * Can the patient safely return to the preadmission environment? Yes * Has this patient been hospitalized within the prior 30 days at any hospital? No Coverage Notice Reviewer: [email or web address] - Ginny Varghese Notice Issued Date-Time: 12/10/2019 12:02 Notice Type: IM Discharge Notice Notice Delivered To: Patient Relationship to Patient: Self Insights Manager Name: Delivery Method: HAND - Hand Delivered Mary Days: Prior Verbal Notification: Recipient Understood Notice: Yes Recipient Signature: Yes Med Rec Note Co-signed by Attending: Coverage Notice Comment: IMM explained, signed, given, copy placed in MR Last DP export: 12/10/19 11:09 am Patient Name: DEBBIE BRASHER Page [id number] at 1630 All edits/amendments must be made on the electronic document DICTATION DATE: 12/10/191628 RIB BENDER: LILIANA 12/10/199 RPT#: [id number] DC DATE:12/10/19 STATUS: DIS IN [place] [id number] [place] [address] END OF REPORT
== END 2019-12-10 14:09 | disposition home or self-care (01) | DRG 190 ==
LOC: D.M2 12:18
PROVIDERS: Family Medicine; Internal Medicine Nephrology; Internal Medicine Pulmonary Disease; ADMIT Family Medicine; ATTEND Family Medicine
DX: J44.0 Chronic obstructive pulmonary disease with (acute) lower respiratory infection (principal); J18.9 Pneumonia, unspecified organism; E87.1 Hypo-osmolality and hyponatremia; I50.30 Unspecified diastolic (congestive) heart failure; E87.6 Hypokalemia; I25.10 Atherosclerotic heart disease of native coronary artery without angina pectoris; I11.0 Hypertensive heart disease with heart failure; E11.40 Type 2 diabetes mellitus with diabetic neuropathy, unspecified; D50.9 Iron deficiency anemia, unspecified; Z86.73 Personal history of transient ischemic attack (TIA), and cerebral infarction without residual deficits